=== PATIENT | male | born 1950 ===

== ENCOUNTER 2017-08-06 09:10 | Inpatient (IN) | payer OTHER ==
--- NOTE | 2017-08-06 09:36 | ED PDOC ---
Arrival/HPI - General Chief Complaint: Weakness/Neurological Deficit Time Seen by Provider: 08/06/17 09:25 Historian: Patient, Spouse - History of Present Illness Narrative History of Present Illness (Text): 08/06/17 09:30 A 66 year old male, whose past medial history includes hypertension (non compliant with meds), presents to the emergency department for waking up with left sided extremity weakness. The patient states he went to bed around 10-11 and was at his normal baseline. The patient reports when he woke up he had left sided extremity weakness. The patient denies any light-headedness, dizziness, chest pain, visions changes, or any other complaints at this time. Time/Duration: 1-3 hours Symptom Onset: Gradual Symptom Course: Improving Severity Level: Mild Activities at Onset: Rest, Light Context: Home Associated Symptoms (Text): 08/06/17 09:57 Patient and report that he went to bed last evening between 10 and 11:00. He woke up this morning sometime around 8 with left sided weakness. No headache. No dizziness. No numbness tingling or paresthesias. No speech difficulty. He went to bed feeling fine last night. No chest pain palpitations or dyspnea. History of hypertension, but he does not take his medications as prescribed. Patient is not a TPA candidate as the timeframe is too long. NIH is 2. Past Medical History - Provider Review Nursing Documentation Reviewed: Yes - Cardiac Hx Cardiac Disorders: Yes Hx Hypertension: Yes - Neurological Hx Neurological Disorder: Yes Hx Transient Ischemic Attacks (TIA): Yes - Psychiatric Hx Substance Use: No Family/Social History - Physician Review Nursing Documentation Reviewed: Yes Family/Social History: No Known Family HX Smoking Status: Never Smoked Hx Alcohol Use: No Hx Substance Use: No Allergies/Home Meds Allergies/Adverse Reactions: Allergies No Known Allergies Allergy (Verified 08/06/17 09:12) Home Medications: Home Meds Medication Instructions Recorded Confirmed No Known Home Med 08/06/17 08/06/17 Review of Systems - Physician Review All systems were reviewed & negative as marked: Yes - Review of Systems Eyes: absent: Vision Changes Respiratory: absent: SOB Cardiovascular: absent: Chest Pain, Palpitations, Syncope Gastrointestinal: absent: Abdominal Pain, Nausea, Vomiting Neurological: Focal Weakness (left sided weakness), Other (dizziness). absent: Headache, Dizziness, Speech Changes, Facial Droop, Seizure Physical Exam Vital Signs Temp Pulse Resp BP Pulse Ox 08/06/17 12:36 74 18 186/107 H 98 08/06/17 11:37 72 182/106 H 08/06/17 11:21 71 185/104 H 08/06/17 11:19 72 24 187/112 H 08/06/17 10:55 205/110 H 08/06/17 10:18 84 18 222/114 H 95 08/06/17 09:10 98.7 F 69 18 214/98 H 95 Temperature: Afebrile Blood Pressure: Hypertensive Pulse: Regular Respiratory Rate: Normal Appearance: Positive for: Well-Appearing, Non-Toxic, Comfortable Pain Distress: None Mental Status: Positive for: Alert and Oriented X 3 Finger Stick Blood Glucose: 126 - Systems Exam Head: Present: Atraumatic, Normocephalic Pupils: Present: PERRL Extroacular Muscles: Present: EOMI Conjunctiva: Present: Normal Mouth: Present: Moist Mucous Membranes Pharnyx: No: ERYTHEMA, EXUDATE, TONSILS ENLARGED Neck: Present: Normal Range of Motion Respiratory/Chest: Present: Clear to Auscultation, Good Air Exchange, Decreased Breath Sounds. No: Respiratory Distress, Accessory Muscle Use Cardiovascular: Present: Regular Rate and Rhythm, Normal S1, S2. No: Murmurs Abdomen: Present: Normal Bowel Sounds. No: Tenderness, Distention, Peritoneal Signs, Rebound, Guarding Back: Present: Normal Inspection Upper Extremity: Present: Normal Inspection. No: Cyanosis, Edema Lower Extremity: Present: Normal Inspection. No: Edema Neurological: Present: GCS=15, CN II-XII Intact, Speech Normal. No: Motor Func Grossly Intact, Normal Cerebellar Funct, Gait Normal (Left upper extremity weakness. Left upper extremity passpointing. Gait and stance not examined) Skin: Present: Warm, Dry, Normal Color. No: Rashes Psychiatric: Present: Alert, Oriented x 3, Normal Insight, Normal Concentration Medical Decision Making ED Course and Treatment: 08/06/17 09:40 Impression: A 66 year old male with left sided weakness. Differential Diagnosis included but are not limited to: Plan: -- Head CT -- Chest X-ray -- EKG -- Labs -- Urinalysis -- Reassess and disposition Progress Notes: 08/06/17 10:01 EKG shows normal sinus rhythm rate approximately [address] and T- wave changes laterally with no old available for comparison - Lab Interpretations Lab Results: 08/06/17 10:00 08/06/17 10:00 Lab Results 08/06/17 10:00: TSH 3rd Generation 1.50 08/06/17 10:00: Magnesium 2.1, Triglycerides 174 H, Cholesterol 201 H, LDL Cholesterol Direct 148 H, HDL Cholesterol 34 08/06/17 10:00: Sodium 145, Potassium 2.9 L*, Chloride 103, Carbon Dioxide 31, Anion Gap 13, BUN 21, Creatinine 1.3, Est GFR ( Amer) > 60, Est GFR (Non- Af Amer) 56, Random Glucose 134 H, Calcium 8.8, Phosphorus 2.7, Magnesium 2.1, Total Bilirubin 0.8, AST 28, ALT 38, Alkaline Phosphatase 98, Lactate Dehydrogenase 566, Total Creatine Kinase 101, Troponin I 0.02, Total Protein 7.1 , Albumin 4.0, Globulin 3.1, Albumin/Globulin Ratio 1.3 08/06/17 10:00: PT 11.7, INR 1.06, APTT 29.3 08/06/17 10:00: WBC 8.9, RBC 4.73, Hgb 14.6, Hct 42.1, MCV 89.0, MCH 30.9, MCHC 34.7, RDW 14.6 H, Plt Count 221, MPV 11.7 H, Gran % 75.2 H, Lymph % (Auto) 16.3 L, Piatt % (Auto) 6.0, Eos % (Auto) 2.2, Baso % (Auto) 0.3, Gran # 6.68 H, Lymph # 1.5, Piatt # 0.5, Eos # 0.2, Baso # 0.03 08/06/17 09:50: Urine Color Yellow, Urine Appearance Sl cloudy, Urine pH 7.5, Ur Specific [place] 1.025, Urine Protein 100 H, Urine Glucose (UA) Negative, Urine Ketones Negative, Urine Blood Small H, Urine Nitrate Negative, Urine Bilirubin Negative, Urine Urobilinogen 0.2, Ur Leukocyte Esterase Negative, Urine RBC 2 - 5, Urine WBC Negative - RAD Interpretation Radiology Orders: 08/06/17 09:29 HEAD W/O CONTRAST [CT] Stat 08/06/17 09:31 CHEST PORTABLE [RAD] Stat CT scan of the head as read by the radiologist shows no acute findings, old CVA Rn New Grad: Radiologist - Medication Orders Current Medication Orders: Aspirin (Aspirin Chewable) 81 mg PO DAILY SUKHI Potassium Chloride (Potassium Chloride 20 Meq/100 Ml) 20 meq in 100 mls @ 50 mls/hr IVPB Q2H SUKHI Stop: 08/06/17 16:29 Last Admin: 08/06/17 12:52 Dose: 50 mls/hr eMAR Start Stop Document 08/06/17 12:52 RG (Rec: 08/06/17 12:54 [id number] Intravenous Solution Start Date 08/06/17 Start Time 12:54 Pantoprazole Sodium (Protonix Ec Tab) 40 mg PO 0600 SUKHI Discontinued Medications Aspirin (Aspirin Chewable) 324 mg PO ONCE ONE Stop: 08/06/17 10:27 Last Admin: 08/06/17 10:45 Dose: 324 mg Enalaprilat (Vasotec Iv) 5 mg IVP STAT STA Stop: 08/06/17 10:27 Last Admin: 08/06/17 10:55 Dose: 5 mg MAR Blood Pressure Document 08/06/17 10:55 RG (Rec: 08/06/17 10:55 [id number]) Blood Pressure Blood Pressure (100/60-150/90) 205/110 IVP Administration Document 08/06/17 10:55 RG (Rec: 08/06/17 10:55 [id number]) Charges for Administration # of IVP Administrations 1 Potassium Chloride (Potassium Chloride Oral Soln) 40 meq PO STAT STA Stop: 08/06/17 10:58 Last Admin: 08/06/17 11:10 Dose: 40 meq NIHSS Scale ([place]) Time Performed: 10:20 - How Severe is the Stoke Baseline Level of Consciousness: 0=Alert LOC to Questions: 0=Both comments correct LOC to commands: 0=Obeys both correctly Best Gaze: 0=Normal Visual: 0=No visual loss Facial: 0=Normal Motor Arm - Left: 1=Drift noted before 10 sec Motor Arm - Right: 0=No drift Motor Leg - Left: 0=No drift Motor Leg - Right: 0=No drift Limb Ataxia: 1=Present Upper or Lower Sensory: 0=Normal Best Language: 0=No aphasia Dysarthia: 0=Normal articulation Extinction & Inattention (Neglect): 0=Normal, no object Score: 2 Risk Level: Minor Stroke Risk - Scribe Statement The provider has reviewed the documentation as recorded by the Pete Shah Provider Scribe Attestation: All medical record entries made by the Scribe were at my direction and personally dictated by me. I have reviewed the chart and agree that the record accurately reflects my personal performance of the history, physical exam, medical decision making, and the department course for this patient. I have also personally directed, reviewed, and agree with the discharge instructions and disposition. Disposition/Present on Arrival - Present on Arrival Any Indicators Present on Arrival: No History of DVT/PE: No History of Uncontrolled Diabetes: No Urinary Catheter: No History of Decub. Ulcer: No History Surgical Site Infection Following: None - Disposition Have Diagnosis and Disposition been Completed?: Yes Diagnosis: CVA (cerebral vascular accident), Hypertension Disposition: HOSPITALIZED Disposition Time: 11:32 Patient Plan: Admission Patient Problems: Current Active Problems Problem Status Onset CVA (cerebral vascular accident) Acute Hypertension Acute Condition: SERIOUS
[2017-08-06 10:08] LABS: BASO # 0.03 K/mm3 (0.0-2.0); BASO % 0.3 % (0.0-3.0); EOS # 0.2 (0.0-0.7); EOS % 2.2 % (1.5-5.0); GRAN # 6.68 (1.4-6.5); GRAN % 75.2 % (50.0-68.0); HEMATOCRIT 42.1 % (42.0-52.0); LYMPH # 1.5 (1.2-3.4); LYMPH % 16.3 % (22.0-35.0); MEAN CORPUSCULAR HEMOGLOBIN 30.9 pg (25.0-35.0); MEAN CORPUSCULAR HGB CONC 34.7 g/dl (31.0-37.0); MEAN PLATELET VOLUME 11.7 fl (7.0-11.0); MONO # 0.5 (0.1-0.6); RED CELL DISTRIBUTION WIDTH 14.6 % (11.5-14.5); WHITE BLOOD COUNT 8.9 10^3/ul (4.5-11.0)
[2017-08-06 10:23] LABS: PH,URINE 7.5 (4.7-8.0); URINE BILIRUBIN NEGATIVE (NEGATIVE); URINE BLOOD SMALL (NEGATIVE); URINE GLUCOSE (UA) NEGATIVE (NEGATIVE); URINE KETONE NEGATIVE (NEGATIVE); URINE LEUKOCYTE ESTERASE NEGATIVE Leu/uL (NEGATIVE); URINE PROTEIN 100 mg/dL (<30 mg/dL); URINE UROBILINOGEN 0.2 E.U./dL (<1 E.U./dL)
--- NOTE | 2017-08-06 10:24 | CT ---
PROCEDURE: CT HEAD WITHOUT CONTRAST. HISTORY: LUE weakness COMPARISON: None available. TECHNIQUE: Axial computed tomography images were obtained through the head/brain without intravenous contrast. Radiation dose: Total exam DLP = 726 mGy-cm. This CT exam was performed using one or more of the following dose reduction techniques: Automated exposure control, adjustment of the mA and/or kV according to patient size, and/or use of iterative reconstruction technique. FINDINGS: HEMORRHAGE: No intracranial hemorrhage. BRAIN: No mass effect or edema. 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 Severe chronic microvascular changes are seen in the deep white matter. There is a calcification in the left parietal lobe. There are no acute intracranial findings. VENTRICLES: Unremarkable. No hydrocephalus. CALVARIUM: Unremarkable. PARANASAL SINUSES: Unremarkable as visualized. No significant inflammatory changes. MASTOID AIR CELLS: Unremarkable as visualized. No inflammatory changes. OTHER FINDINGS: None. IMPRESSION: There is a chronic infarct in the right thalamus. Severe chronic microvascular changes are seen in the deep white matter. There is a calcification in the left parietal lobe. There are no acute intracranial findings.
[2017-08-06 10:25] LABS: URINE APPEARANCE SL CLOUDY (CLEAR); URINE COLOR YELLOW (YELLOW)
[2017-08-06 10:26] LABS: INR 1.06 (0.93-1.08); PARTIAL THROMBOPLASTIN TIME 29.3 Seconds (25.1-36.5)
[2017-08-06] MEDS ORDERED: EnalaprilAT 1.25 mg/ml Inj IVP STA (10:26)
[2017-08-06 10:31] LABS: TROPONIN I 0.02 ng/mL
[2017-08-06 10:41] LABS: URINE WBC NEGATIVE /hpf (0-6)
[2017-08-06 10:54] LABS: ALB/GLOB RATIO 1.3 (1.1-1.8); ALKALINE PHOSPHATASE 98 U/L (38-126); ALT/SGPT 38 U/L (7-56); AST/SGOT 28 U/L (17-59); BILIRUBIN,TOTAL 0.8 mg/dL (0.2-1.3); BLOOD UREA NITROGEN 21 mg/dL (7-21); CALCIUM 8.8 mg/dL (8.4-10.5); CARBON DIOXIDE 31 mmol/L (21-33); CHLORIDE 103 mmol/L (98-107); GFR AFRICAN-AMERICAN > 60; GLUCOSE,RANDOM 134 mg/dL (70-110); MAGNESIUM 2.1 mg/dL (1.7-2.2); PHOSPHOROUS 2.7 mg/dL (2.5-4.5); POTASSIUM 2.9 mmol/L (3.6-5.0); SODIUM 145 mmol/L (132-148); TOTAL PROTEIN 7.1 g/dL (5.8-8.3)
[2017-08-06] MEDS ORDERED: Potassium Chloride 40 mEq/30 ml LIQ UD PO STA (10:57)
--- NOTE | 2017-08-06 11:06 | RAD ---
HISTORY: weakness COMPARISON: No prior. FINDINGS: LUNGS: No active pulmonary disease. PLEURA: No significant pleural effusion identified, no pneumothorax apparent. CARDIOVASCULAR: Normal. OSSEOUS STRUCTURES: No significant abnormalities. VISUALIZED UPPER ABDOMEN: Normal. OTHER FINDINGS: None. IMPRESSION: No active disease.
--- NOTE | 2017-08-06 12:48 | CP.PCM.HP ---
History of Present Illness - History of Present Illness History of Present Illness: CC: L sided weakness 66 M with past medial history includes CVA (7 years ago), HTN (medication non compliance), kidney stones, presents to the ED with L sided weakness. Pt states that last night he was feeling okay than when he woke up this morning he felt left sided weakness in both his upper and lower extremity. He also complains of L sided tinglness inside his mouth. He denies having any symptoms prior sleeping. He denies any loss of consciousness, urinary or bowel incontinence, or tongue biting. He denies any dizziness, visual changes, chest pain, sob, abd pain, n/v/d. 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 Present on Admission - Present on Admission Any Indicators Present on Admission: No Review of Systems - Review of Systems All systems: reviewed and no additional remarkable complaints except Past Patient History - Past Social History Smoking Status: Never Smoked - CARDIAC Hx Cardiac Disorders: Yes Hx Hypertension: Yes - NEUROLOGICAL Hx Neurological Disorder: Yes Hx Transient Ischemic Attacks (TIA): Yes - PSYCHIATRIC Hx Substance Use: No - SURGICAL HISTORY Hx Surgeries: No Meds Allergies/Adverse Reactions: Allergies Allergy/AdvReac Type Severity Reaction Status Date / Time No Known Allergies Allergy Verified 08/06/17 09:12 Physical Exam - Constitutional Appears: No Acute Distress - Head Exam Head Exam: ATRAUMATIC, NORMOCEPHALIC - Eye Exam Eye Exam: EOMI, PERRL - ENT Exam ENT Exam: Mucous Membranes Moist - Respiratory Exam Respiratory Exam: Clear to Auscultation Bilateral. absent: Rales, Wheezes - Cardiovascular Exam Cardiovascular Exam: REGULAR RHYTHM, RRR, +S1, +S2 - GI/Abdominal Exam GI & Abdominal Exam: Normal Bowel Sounds, Soft. absent: Tenderness - Back Exam Back exam: absent: vertebral tenderness - Neurological Exam Neurological exam: Alert, CN II-XII Intact, Reflexes Normal Additional comments: Motor strength and sensory both intact - with slight L sided weakness. - Psychiatric Exam Psychiatric exam: Normal Affect, Normal Mood - Skin Skin Exam: Dry, Intact, Warm Results - Vital Signs Recent Vital Signs: Last Vital Signs Temp 98.7 F 08/06/17 09:10 Pulse 74 08/06/17 12:36 Resp 18 08/06/17 12:36 BP 186/107 H 08/06/17 12:36 Pulse Ox 98 08/06/17 12:36 - Labs Result Diagrams: 08/06/17 10:00 08/06/17 10:00 Labs: Laboratory Results - last 24 hr 08/06/17 08/06/17 08/06/17 09:50 10:00 10:00 WBC 8.9 RBC 4.73 Hgb 14.6 Hct 42.1 MCV 89.0 MCH 30.9 MCHC 34.7 RDW 14.6 H Plt Count 221 MPV 11.7 H Gran % 75.2 H Lymph % (Auto) 16.3 L [place]ett[place] % (Auto) 6.0 Eos % (Auto) 2.2 Baso % (Auto) 0.3 Gran # 6.68 H Lymph # 1.5 Pettis # 0.5 Eos # 0.2 Baso # 0.03 PT 11.7 INR 1.06 APTT 29.3 Sodium Potassium Chloride Carbon Dioxide Anion Gap BUN Creatinine Est GFR ( Amer) Est GFR (Non-Af Amer) Random Glucose Calcium Phosphorus Magnesium Total Bilirubin AST ALT Alkaline Phosphatase Lactate Dehydrogenase Total Creatine Kinase Troponin I Total Protein Albumin Globulin Albumin/Globulin Ratio Urine Color Yellow Urine Appearance Sl cloudy Urine pH 7.5 Ur Specific [place] 1.025 Urine Protein 100 H Urine Glucose (UA) Negative Urine Ketones Negative Urine Blood Small H Urine Nitrate Negative Urine Bilirubin Negative Urine Urobilinogen 0.2 Ur Leukocyte Esterase Negative Urine RBC 2 - 5 Urine WBC Negative 08/06/17 10:00 WBC RBC Hgb Hct MCV MCH MCHC RDW Plt Count MPV Gran % Lymph % (Auto) [place] % (Auto) Eos % (Auto) Baso % (Auto) Gran # Lymph # Pettis # Eos # Baso # PT INR APTT Sodium 145 Potassium 2.9 L* Chloride 103 Carbon Dioxide 31 Anion Gap 13 BUN 21 Creatinine 1.3 Est GFR ( Amer) > 60 Est GFR (Non-Af Amer) 56 Random Glucose 134 H Calcium 8.8 Phosphorus 2.7 Magnesium 2.1 Total Bilirubin 0.8 AST 28 ALT 38 Alkaline Phosphatase 98 Lactate Dehydrogenase 566 Total Creatine Kinase 101 Troponin I 0.02 Total Protein 7.1 Albumin 4.0 Globulin 3.1 Albumin/Globulin Ratio 1.3 Urine Color Urine Appearance Urine pH Ur Specific [place] Urine Protein Urine Glucose (UA) Urine Ketones Urine Blood Urine Nitrate Urine Bilirubin Urine Urobilinogen Ur Leukocyte Esterase Urine RBC Urine WBC Assessment & Plan - Assessment and Plan (Free Text) Assessment: 66 M with past medial history includes CVA (7 years ago), HTN (medication non compliance) , kidney stones, presents to the ED with L sided weakness. 1. L sided weakness r/o CVA - NPO - CTH in the ED was negative for any acute intracranial abnormality - Neuro consulted for recs - Cardio consulted for recs - F/u echo and carotid US - F/u speech and swallow eval and treat - F/u TSH, Hba1c, Lipid - Cont daily Aspirin - AM labs 2. HTN - Permissive HTN and will treat once >200/100 - Enalapril 5mg x 1 in the ED - Cont to monitor 3. Hypokalemia - K of 2.9 - KCL 40 PO given in the ED - KCl 20me x 2 ordered - Cont to monitor - F/u Mg 4. GI/DVT - protonix and SCDs Case and plan was reviewed and discussed in detail with Dr Astudillo.
[2017-08-06 13:29] LABS: MAGNESIUM 2.1 mg/dL (1.7-2.2)
--- NOTE | 2017-08-06 15:28 | US ---
PROCEDURE: Bilateral carotid artery duplex ultrasound HISTORY: Carotid stenosis CVA PHYSICIAN(S): Pravin Weeks MD. TECHNIQUE: Duplex sonography and color-flow Doppler were used to evaluate the carotid bifurcations and limited segments of the vertebral arteries bilaterally. FINDINGS: The exam is somewhat limited by body habitus. There is mild smooth heterogeneous plaque noted at the carotid bifurcations bilaterally. The peak systolic velocity in the proximal right internal carotid artery is 75 cm/sec. This corresponds to a 20 to 39% proximal right ICA stenosis. Normal systolic velocities are noted in the proximal right external carotid artery. There is antegrade flow in the right vertebral artery. The peak systolic velocity in the proximal left internal carotid artery is 68 cm/sec. This corresponds to a 20 to 39% proximal left ICA stenosis. Normal systolic velocities are noted in the proximal left external carotid artery. There is antegrade flow in the left vertebral artery. IMPRESSION: 1. Bilateral 20-39% proximal ICA stenoses. 2. Antegrade flow in both vertebral arteries.
[2017-08-06] MEDS ORDERED: Labetalol 5 mg/ml Inj 20ML IV ONE (16:43)
--- NOTE | 2017-08-06 16:52 | CARD ---
APPROVED REPORT EXAM: Two-dimensional and M-mode echocardiogram with Doppler and color Doppler. INDICATION R/O CVA 2D DIMENSIONS Left Atrium (2D)5.1 (1.6-4.0cm)IVSd1.9 (0.7-1.1cm) LVDd4.3 (3.9-5.9cm)PWd1.9 (0.7-1.1cm) LVDs3.0 (2.5-4.0cm)FS (%) 30.8 % LVEF (%)58.7 (>50%) M-Mode DIMENSIONS Aortic Root3.20 (2.2-3.7cm)Aortic Cusp Exc.1.50 (1.5-2.0cm) Aortic Valve AoV Peak Uwrcvmax538.0cm/[place] Peak GR.11mmHg Mitral Valve MV E Krfftjvy270.0cm/sMV A Jjpcdapq69.8cm/sE/A ratio1.8 TDI Lateral E' Peak V6.73cm/sMedial E' Peak V5.17cm/sE/Lateral E'16.2 E/Medial E'21.1 Pulmonary Valve PV Peak Jeymefqe55.1cm/sPV Peak Grad.3mmHg Tricuspid Valve TR Peak [id number]/sRAP [id number] Peak Gr.21mmHg [id number] LEFT VENTRICLE The left ventricle is normal size. There is moderate to severe concentric left ventricular hypertrophy. The left ventricular function is normal. The left ventricular ejection fraction is within the normal range. There is normal LV segmental wall motion. Transmitral Doppler flow pattern is Grade II-pseudonormal filling dynamics. RIGHT VENTRICLE The right ventricle is normal size. There is normal right ventricular wall thickness. The right ventricular systolic function is normal. ATRIA The left atrium is moderately dilated. The right atrium is mildly dilated. AORTIC VALVE The aortic valve is mildly sclerotic. No aortic regurgitation is present. There is no aortic valvular stenosis. MITRAL VALVE The mitral valve is mildly thickened. There is no mitral valve regurgitation noted. There is no mitral valve stenosis. TRICUSPID VALVE The tricuspid valve is normal in structure. There is no tricuspid valve regurgitation noted. PULMONIC VALVE The pulmonary valve is normal in structure. There is no pulmonic valvular regurgitation. GREAT VESSELS The aortic root is normal in size. The IVC is normal in size and collapses >50% with inspiration. PERICARDIAL EFFUSION There is no pericardial effusion. <Conclusion> The left ventricle is normal size. There is moderate to severe concentric left ventricular hypertrophy. The left ventricular function is normal. The left ventricular ejection fraction is within the normal range. There is normal LV segmental wall motion. Transmitral Doppler flow pattern is Grade II-pseudonormal filling dynamics.
--- NOTE | 2017-08-06 17:24 | CARD ---
APPROVED REPORT EKG Measurement Heart [id number] <Conclusion> Normal sinus rhythm Possible Left atrial enlargement T wave abnormality, consider inferolateral ischemia Prolonged QT Abnormal ECG
--- NOTE | 2017-08-06 17:34 | CP.PCM.CON ---
<Yaneth Easton - Last Filed: 08/06/17 17:36> History of Present Illness - History of Present Illness History of Present Illness: PGY-2 Neurology consult note for Sin Chin's service 66 male with past medial history includes CVA (7 years ago), HTN, kidney stones , presents to the ED with Left sided weakness. Patient states that last night he was feeling well but when he woke up this morning he felt left sided weakness in both his upper and lower extremity. He also reports tingling and numbness in the left side of his mouth. He denies having any symptoms prior sleeping. He does report medication non compliance with his blood pressure meds. He denies any loss of consciousness, dizziness, headache, fever, chills, urinary or bowel incontinence, or tongue biting. He denies any dizziness, visual changes, chest pain, sob, abd pain, n&v, diarrhea. PMH: CVA (7 years ago), HTN, kidney stones, PSH: surgery for kidney stones Allergy: NKDA Family History: grandfather had CVA Social History: Denies any smoking, drinking or drugs. Review of Systems - Review of Systems All systems: reviewed and no additional remarkable complaints except (as stated in HPI) Past Patient History - Past Social History Smoking Status: Never Smoked - CARDIAC Hx Cardiac Disorders: Yes Hx Hypertension: Yes - NEUROLOGICAL Hx Neurological Disorder: Yes Hx Transient Ischemic Attacks (TIA): Yes - PSYCHIATRIC Hx Substance Use: No - SURGICAL HISTORY Hx Surgeries: No Meds Allergies/Adverse Reactions: Allergies Allergy/AdvReac Type Severity Reaction Status Date / Time No Known Allergies Allergy Verified 08/06/17 09:12 - Medications Medications: Current Medications Aspirin (Aspirin Chewable) 81 mg PO DAILY [facility] Pantoprazole Sodium (Protonix Ec Tab) 40 mg PO 0600 [facility] Physical Exam - Constitutional Appears: Well, No Acute Distress - Head Exam Head Exam: ATRAUMATIC, NORMAL INSPECTION, NORMOCEPHALIC - Eye Exam Eye Exam: EOMI, Normal appearance, PERRL - ENT Exam ENT Exam: Mucous Membranes Moist - Respiratory Exam Respiratory Exam: Clear to Auscultation Bilateral, NORMAL BREATHING PATTERN. absent: Rhonchi, Wheezes, Respiratory Distress - Cardiovascular Exam Cardiovascular Exam: REGULAR RHYTHM, +S1, +S2. absent: Tachycardia, Systolic Murmur - GI/Abdominal Exam GI & Abdominal Exam: Normal Bowel Sounds, Soft. absent: Tenderness - Extremities Exam Extremities exam: Positive for: normal inspection. Negative for: pedal edema, tenderness - Neurological Exam Neurological exam: Alert, CN II-XII Intact, Oriented x3 - Expanded Neurological Exam Expanded Patient oriented to: person, place, time Speech: Fluid Speech Cranial nerves: EOM's Intact: Normal, Tongue Deviation: Normal Cerebellar Function: Finger to Nose: Normal Upper motor neuron: Babinski Sign: Normal, Pronator Drift: Abnormal Left Neuro motor strength exam: Left Upper Extremity: 5, Right Upper Extremity: 5, Left Lower Extremity: 5, Right Lower Extremity: 5 - Skin Skin Exam: Dry, Intact, Normal Color, Warm Results - Vital Signs Recent Vital Signs: Last Vital Signs Temp 98.7 F 08/06/17 09:10 Pulse 75 08/06/17 16:57 Resp 18 08/06/17 12:36 BP 205/113 H 08/06/17 16:57 Pulse Ox 98 08/06/17 12:36 - Labs Result Diagrams: 08/06/17 10:00 08/06/17 10:00 Assessment & Plan - Assessment and Plan (Free Text) Assessment: 66 male with past medial history includes CVA (7 years ago), HTN, kidney stones , presents to the ED with Left sided weakness possibly due to CVA secondary HTN urgency. 1. left sided weakness 2. HTN- uncontrolled - CT head showed chronic infarct of right thalamus, severe chronic microvascular changes - MRI ordered stat - echo showed moderate to severe left ventricular hypertroghy, EF 58% - carotid doppler bilateral 20-39% proximal ICA stenoses - Maintain Systolic Blood Pressure less then 200, and diastolic less then 100 - echo completed, awaiting official read case reviewed and discussed with attending <Jose Martin Chin - Last Filed: 08/06/17 18:07> Meds - Medications Medications: Current Medications Aspirin (Aspirin Chewable) 81 mg PO DAILY [facility] Pantoprazole Sodium (Protonix Ec Tab) 40 mg PO 0600 [facility] Results - Vital Signs Recent Vital Signs: Last Vital Signs Temp 98.7 F 08/06/17 09:10 Pulse 75 08/06/17 16:57 Resp 18 08/06/17 12:36 BP 205/113 H 08/06/17 16:57 Pulse Ox 98 08/06/17 12:36 - Labs Result Diagrams: 08/06/17 10:00 08/06/17 10:00 Attending/Attestation - Attestation I have personally seen and examined this patient.: Yes I have fully participated in the care of the patient.: Yes I have reviewed all pertinent clinical information: Yes
--- NOTE | 2017-08-06 19:15 | MRI ---
EXAM: MR Head Without Intravenous Contrast EXAM DATE/TIME: 08/06/2017 3:30 PM CLINICAL HISTORY: The patient age is 66 years old and is male; Signs and symptoms; Other: CVA Facility exam id and description: Mri br s brain without contrast TECHNIQUE: Magnetic resonance images of the head/brain without intravenous contrast in multiple planes. COMPARISON: CT - HEAD W/O CONTRAST 2017-08-06 09:57 FINDINGS: Brain: There is scattered foci of increased signal intensity on the diffusion sequence within the cerebral white matter bilaterally. These findings are heterogeneous in signal intensity on the ADC trace sequence. This is suggestive of subacute ischemic change, although T2 shine through artifact can contribute to these findings. Due to distribution of foci, embolic disease is considered. There is moderate to extensive additional high FLAIR signal intensity within the cerebral white matter. There is no mass effect or restricted diffusion associated with these foci. In a patient this age, this likely represents chronic small vessel ischemic disease. There is a small nonspecific focus of T1 hypointensity within the genu/anterior body of the corpus callosum. This is suggestive of chronic ischemic change or demyelination. Additional foci of FLAIR hyperintensity are seen within the bilateral basal ganglia and thalami , as well as the gerald. These findings are consistent with chronic lacunar infarcts/chronic small vessel ischemic disease. Ventricles: There is mild prominence of the ventricles and sylvian fissures, compatible with atrophy. Bones/joints: No acute abnormality. Sinuses: Unremarkable as visualized. No acute sinusitis. Mastoid air cells: No mastoid effusion. Orbits: No acute abnormality, as visualized. IMPRESSION: 1. There is scattered foci of increased signal intensity on the diffusion sequence within the cerebral white matter bilaterally. These findings are suggestive of subacute ischemic change, although T2 shine through artifact can contribute to these findings. Due to distribution of foci, embolic disease is considered. 2. There is moderate to extensive additional high FLAIR signal intensity within the cerebral white matter. In a patient this age, this likely represents chronic small vessel ischemic disease. 3. Additional chronic ischemic changes are noted above. 4. Mild atrophy. 5. There is a small nonspecific focus of T1 hypointensity within the genu/anterior body of the corpus callosum. This is suggestive of chronic ischemic change or demyelination. Nonemergent post contrast sequences are recommended to exclude additional pathology.
[2017-08-06 20:13] VITALS: BMI 32.3
[2017-08-06] MEDS ORDERED: Metoprolol 1 mg/ml Inj IVP ONE (21:07)
[2017-08-07] MEDS: Pantoprazole 40 mg EC Tab PO SCH (05:20)
[2017-08-07 07:01] LABS: BASO # 0.02 K/mm3 (0.0-2.0); BASO % 0.2 % (0.0-3.0); EOS # 0.1 (0.0-0.7); GRAN # 6.46 (1.4-6.5); GRAN % 64.2 % (50.0-68.0); HEMATOCRIT 41.7 % (42.0-52.0); LYMPH # 2.5 (1.2-3.4); LYMPH % 24.8 % (22.0-35.0); MEAN CELL VOLUME 89.9 fl (80.0-105.0); MEAN CORPUSCULAR HEMOGLOBIN 30.4 pg (25.0-35.0); MEAN CORPUSCULAR HGB CONC 33.8 g/dl (31.0-37.0); MONO % 9.8 % (1.0-6.0); RED CELL DISTRIBUTION WIDTH 15.2 % (11.5-14.5); WHITE BLOOD COUNT 10.1 10^3/ul (4.5-11.0)
[2017-08-07 07:08] LABS: ALB/GLOB RATIO 1.2 (1.1-1.8); ALKALINE PHOSPHATASE 86 U/L (38-126); ALT/SGPT 41 U/L (7-56); AST/SGOT 35 U/L (17-59); BILIRUBIN,TOTAL 0.9 mg/dL (0.2-1.3); BLOOD UREA NITROGEN 19 mg/dL (7-21); CALCIUM 8.9 mg/dL (8.4-10.5); CARBON DIOXIDE 27 mmol/L (21-33); CHLORIDE 107 mmol/L (98-107); GFR AFRICAN-AMERICAN > 60; GLUCOSE,RANDOM 105 mg/dL (70-110); MAGNESIUM 2.2 mg/dL (1.7-2.2); POTASSIUM 3.2 mmol/L (3.6-5.0); SODIUM 145 mmol/L (132-148); TOTAL PROTEIN 6.8 g/dL (5.8-8.3)
[2017-08-07] MEDS ORDERED: Potassium Chloride 40 mEq/30 ml LIQ UD PO STA (08:53)
[2017-08-07] MEDS ORDERED: Labetalol 5 mg/ml Inj 20ML IV ONE (08:57)
[2017-08-07] MEDS ORDERED: Gadodiamide 287 MG/ML VIAL (20ML) IV ONE (09:41)
[2017-08-07] MEDS ORDERED: Labetalol 5 mg/ml Inj 20ML IVP ONE (09:50)
--- NOTE | 2017-08-07 11:21 | MRI ---
PROCEDURE: Magnetic Resonance Angiography Brain HISTORY: eval, MRI brain suggestive of subacute ischemia COMPARISON: None available. TECHNIQUE: 3D time of flight MR angiography of the intracranial arteries was performed. Rotating maximum intensity projection images were generated. FINDINGS: INTERNAL CAROTID ARTERIES: Unremarkable. The skull base, petrous, cavernous and supraclinoid segments are bilaterally widely patient. ANTERIOR CEREBRAL ARTERIES: Unremarkable. A1 and A2 segments are widely patent. Smaller distal branches unremarkable, as visualized. MIDDLE CEREBRAL ARTERIES: Unremarkable. M1 and M2 segments are widely patent. Perisylvian branches grossly symmetric. POSTERIOR CIRCULATION: Basilar Artery: Unremarkable. Distal Vertebral Arteries: Unremarkable. Posterior Cerebral Arteries: Unremarkable. Posterior Inferior Cerebellar Arteries: Unremarkable. ANEURYSM/ VASCULAR MALFORMATIONS: None. OTHER FINDINGS: None. IMPRESSION: Unremarkable MR angiography of the brain.
--- NOTE | 2017-08-07 11:23 | MRI ---
PROCEDURE: MR Angiography of the neck with and without contrast HISTORY: eval, MRI brain suggestive of subacute ischemia COMPARISON: None available. TECHNIQUE: Contrast enhanced and [id number] angiography of the neck was performed. Rotating 3D maximum intensity projection images of the cervical carotid and vertebral arteries were generated. 20 cc of Omniscan FINDINGS: RIGHT CAROTID ARTERIES: Common Carotid Artery: Normal. Carotid Bifurcation: Normal. Internal Carotid Artery:Normal. External Carotid Artery (proximal branches): Normal. LEFT CAROTID ARTERIES: Common Carotid Artery: Normal. Carotid Bifurcation: Normal. Internal Carotid Artery:Normal. External Carotid Artery (proximal branches): Normal. VERTEBRAL ARTERIES: Right Vertebral Artery: Normal. Left Vertebral Artery: Normal. OTHER FINDINGS: None. IMPRESSION: Normal MR Angiography of the neck.
--- NOTE | 2017-08-07 13:34 | CP.PCM.PN ---
Subjective - Date & Time of Evaluation Date of Evaluation: 08/07/17 Time of Evaluation: 07:30 - Subjective Subjective: PGY [address] ARREGUIN/DR. KELLY Patient seen and evaluated at bedside. No acute events reported overnight. Patient scheduled for MRA head and neck today. Patient reporting improvement in presenting symptoms. Denies blurry vision, further weakness, numbness, loss of mobility, chest pain, shob, dizziness, constipation diarrhea, vomiting, fever, chills. Patient continues to have elevated BP will continue to monitor and treat. Objective - Vital Signs/Intake and Output Vital Signs (last 24 hours): Temp Pulse Resp BP Pulse Ox 98.3 F 70 20 187/102 H 98 08/07/17 06:00 08/07/17 10:39 08/07/17 06:00 08/07/17 10:39 08/07/17 06:00 Intake and Output: 08/07/17 08/07/17 06:59 18:59 Intake Total 240 Output Total 400 Balance -160 - Medications Medications: Current Medications Aspirin (Aspirin Chewable) 81 mg PO DAILY [facility] Last Admin: 08/07/17 09:09 Dose: 81 mg Atorvastatin Calcium (Lipitor) 40 mg PO DIN [facility] Last Admin: 08/06/17 20:42 Dose: 40 mg Carvedilol (Coreg) 6.25 mg PO BID [facility] Clopidogrel Bisulfate (Plavix) 75 mg PO DAILY [facility] Last Admin: 08/07/17 09:09 Dose: 75 mg Hydralazine HCl (Apresoline) 10 mg IVP Q6 PRN PRN Reason: Other Lisinopril (Zestril) 20 mg PO DAILY [facility] Last Admin: 08/07/17 10:39 Dose: 20 mg Pantoprazole Sodium (Protonix Ec Tab) 40 mg PO 0600 [facility] Last Admin: 08/07/17 05:20 Dose: 40 mg - Labs Labs: 08/07/17 06:30 08/07/17 06:30 PT 11.7 SECONDS (9.4-12.5) 08/06/17 10:00 INR 1.06 (0.93-1.08) 08/06/17 10:00 APTT 29.3 Seconds (25.1-36.5) 08/06/17 10:00 - Constitutional Appears: No Acute Distress - Head Exam Head Exam: ATRAUMATIC, NORMAL INSPECTION, NORMOCEPHALIC - Eye Exam Eye Exam: EOMI, PERRL - ENT Exam ENT Exam: Mucous Membranes Moist - Neck Exam Neck Exam: Full ROM - Respiratory Exam Respiratory Exam: Clear to Ausculation Bilateral, NORMAL BREATHING PATTERN. absent: Rales, Rhonchi, Wheezes - Cardiovascular Exam Cardiovascular Exam: REGULAR RHYTHM, +S1, +S2. absent: Murmur - GI/Abdominal Exam GI & Abdominal Exam: Soft, Normal Bowel Sounds. absent: Distended, Firm, Rebound - Extremities Exam Extremities Exam: Normal Inspection. absent: Calf Tenderness, Pedal Edema - Back Exam Back Exam: NORMAL INSPECTION - Neurological Exam Neurological Exam: Alert, Awake, Oriented x3 Neuro motor strength exam: Left Upper Extremity: 4, Right Upper Extremity: 5, Left Lower Extremity: 4, Right Lower Extremity: 5 - Psychiatric Exam Psychiatric exam: Normal Affect, Normal Mood - Skin Skin Exam: Dry, Intact. absent: Rash Assessment and Plan - Assessment and Plan (Free Text) Assessment: 66 male with past medial history includes CVA (7 years ago), HTN, kidney stones , presents to the ED with Left sided weakness due to CVA secondary to HTN urgency, currently receiving further work up and medical management. Plan: 1. L sided weakness 2/2 suspected CVA - NPO - Brain MRI suggestive of subacute ischemic change. Embolic disease considered - CTH in the ED was negative for any acute intracranial abnormality - Neuro consulted for recs - Curbside suggesting cardio consult, possible loop recorder for Afib - Recommend anticoagulation with eliquis and ASA 81 for stroke prevention - Cardio consulted for recs - anticoagulation for stroke prevention - Cont daily Aspirin 81 - AM labs - Once BP stable plan to stop plavix, start ASA 81 and Eliquis 5 2. Hypertensive Urgency - Start Lisinopril 20mg qd, Carvedilol 6.25mg bid, Hydralazine 10mg PRN, - Maintain systolic BP <200, diastolic <100 as per neuro recs. - Cont to monitor BP 3. Hypokalemia - K of 3.2 - KCL 40 PO given in the ED - KCl 20me x 2 ordered - Cont to monitor - F/u Mg 4. Hyperlipidemia - Aspirin 81mg, Plavix 75mg, Atorvastatin 40mg 5. GI/DVT - protonix and SCDs Case and plan was reviewed and discussed in detail with Dr. Arreguin
--- NOTE | 2017-08-07 15:32 | CP.PCM.PN ---
<Yaneth Easton - Last Filed: 08/07/17 17:33> Subjective - Date & Time of Evaluation Date of Evaluation: 08/07/17 Time of Evaluation: 09:00 - Subjective Subjective: PGY-2 Neurology progress note for Dr. Chin's service Patient seen and examined at bedside. No acute distress. He states that his left side still feels weaker. He denies anyother comaplaints, including chest pain, headache, dizziness, fever, chills. Objective - Vital Signs/Intake and Output Vital Signs (last 24 hours): Temp Pulse Resp BP Pulse Ox 98.8 F 68 20 188/111 H 97 08/07/17 12:00 08/07/17 12:00 08/07/17 12:00 08/07/17 12:00 08/07/17 09:00 Intake and Output: 08/07/17 08/07/17 06:59 18:59 Intake Total 240 Output Total 400 Balance -160 - Medications Medications: Current Medications Aspirin (Aspirin Chewable) 81 mg PO DAILY [facility] Last Admin: 08/07/17 09:09 Dose: 81 mg Atorvastatin Calcium (Lipitor) 40 mg PO DIN [facility] Last Admin: 08/06/17 20:42 Dose: 40 mg Carvedilol (Coreg) 6.25 mg PO BID [facility] Clopidogrel Bisulfate (Plavix) 75 mg PO DAILY [facility] Last Admin: 08/07/17 09:09 Dose: 75 mg Hydralazine HCl (Apresoline) 10 mg IVP Q6 PRN PRN Reason: Other Lisinopril (Zestril) 20 mg PO DAILY [facility] Last Admin: 08/07/17 10:39 Dose: 20 mg Pantoprazole Sodium (Protonix Ec Tab) 40 mg PO 0600 [facility] Last Admin: 08/07/17 05:20 Dose: 40 mg - Labs Labs: 08/07/17 06:30 08/07/17 06:30 PT 11.7 SECONDS (9.4-12.5) 08/06/17 10:00 INR 1.06 (0.93-1.08) 08/06/17 10:00 APTT 29.3 Seconds (25.1-36.5) 08/06/17 10:00 - Constitutional Appears: No Acute Distress - Head Exam Head Exam: ATRAUMATIC, NORMAL INSPECTION, NORMOCEPHALIC - Eye Exam Eye Exam: EOMI, Normal appearance - ENT Exam ENT Exam: Mucous Membranes Moist - Respiratory Exam Respiratory Exam: Clear to Ausculation Bilateral, NORMAL BREATHING PATTERN. absent: Wheezes, Respiratory Distress, Stridor - Cardiovascular Exam Cardiovascular Exam: REGULAR RHYTHM - Neurological Exam Neurological Exam: Alert, Awake, CN II-XII Intact, Oriented x3 Neuro motor strength exam: Left Upper Extremity: 4, Right Upper Extremity: 5, Left Lower Extremity: 4, Right Lower Extremity: 5 - Skin Skin Exam: Dry, Intact, Normal Color, Warm Assessment and Plan - Assessment and Plan (Free Text) Assessment: 66 male with past medial history includes CVA (7 years ago), HTN, kidney stones , presents to the ED with Left sided weakness possibly due to CVA secondary HTN urgency. 1. left sided weakness 2. HTN- uncontrolled - CT head showed chronic infarct of right thalamus, severe chronic microvascular changes - MRI showed subacute ischemic changes - echo showed moderate to severe left ventricular hypertroghy, EF 58% - carotid doppler bilateral 20-39% proximal ICA stenoses - MRA of brain was unremarkable - MRA of neck was normal - Maintain Systolic Blood Pressure less then 200, and diastolic less then 100 - cardiology consult recommended will most likely need loop recorder - recommend anticoagulation such as eliquis or coumadin - continue asa 81mg - follow up with Dr. Chin outpatient case reviewed and discussed with attending <Jose Martin Chin - Last Filed: 08/07/17 19:55> Objective - Vital Signs/Intake and Output Vital Signs (last 24 hours): Temp Pulse Resp BP Pulse Ox 99 F 97 H 20 192/108 H 94 L 08/07/17 16:00 08/07/17 18:00 08/07/17 16:00 08/07/17 17:34 08/07/17 16:00 - Medications Medications: Current Medications Aspirin (Aspirin Chewable) 81 mg PO DAILY [facility] Last Admin: 08/07/17 09:09 Dose: 81 mg Atorvastatin Calcium (Lipitor) 40 mg PO DIN [facility] Last Admin: 08/07/17 17:34 Dose: 40 mg Carvedilol (Coreg) 6.25 mg PO BID [facility] Last Admin: 08/07/17 17:34 Dose: 6.25 mg Clopidogrel Bisulfate (Plavix) 75 mg PO DAILY [facility] Last Admin: 08/07/17 09:09 Dose: 75 mg Hydralazine HCl (Apresoline) 10 mg IVP Q6 PRN PRN Reason: Other Lisinopril (Zestril) 20 mg PO DAILY [facility] Last Admin: 08/07/17 10:39 Dose: 20 mg Pantoprazole Sodium (Protonix Ec Tab) 40 mg PO 0600 [facility] Last Admin: 08/07/17 05:20 Dose: 40 mg - Labs Labs: 08/07/17 06:30 08/07/17 06:30 PT 11.7 SECONDS (9.4-12.5) 08/06/17 10:00 INR 1.06 (0.93-1.08) 08/06/17 10:00 APTT 29.3 Seconds (25.1-36.5) 08/06/17 10:00 Assessment and Plan - Assessment and Plan (Free Text) Assessment: eliquis plus asa81 mg po daily for strok prevention.
--- NOTE | 2017-08-07 23:03 | CON ---
DATE: 08/07/2017 HISTORY OF PRESENT ILLNESS: The patient is a 66-year-old male who presents with new CVA with left-sided weakness. PAST MEDICAL HISTORY: Includes hypertension in which he stopped his own medications. He denies diabetes mellitus. No previous cardiac history. No shortness of breath. No angina. No previous myocardial infarction. SOCIAL HISTORY: Negative smoker. REVIEW OF SYSTEMS: 14-point review of systems reviewed in detail. No cardiac symptomatology is noted. PHYSICAL EXAMINATION: VITAL SIGNS: Blood pressure is 187/102, heart rate is in the 70s. NECK: Negative JVD. LUNGS: Without rales. HEART: With S1, S2. EXTREMITIES: Without edema. NEUROLOGIC: There is persistent left-sided weakness. LABORATORY DATA: EKG shows normal sinus rhythm with diffuse ST-T changes. Echocardiogram reveals good LV function with a dilated left atrium. BUN and creatinine are unremarkable. Cholesterol is 201 with a triglyceride of 174. Hemoglobin is 14.1. IMPRESSION: 1. New cerebrovascular accident. 2. High probability for embolic cause of his cerebrovascular accident. 3. Accelerated hypertension. 4. Abnormal EKG. 5. High probability for coronary artery disease. PLAN: Given these findings, the patient will need anticoagulation. I have left a message with Neuro about starting anticoagulation once they feel it is safe given his recent CVA. Pravin Mckeon MD
[2017-08-08] MEDS: Pantoprazole 40 mg EC Tab PO SCH (06:15)
[2017-08-08 07:41] LABS: BASO # 0.03 K/mm3 (0.0-2.0); BASO % 0.2 % (0.0-3.0); EOS # 0.2 (0.0-0.7); EOS % 1.6 % (1.5-5.0); GRAN # 9.29 (1.4-6.5); HEMATOCRIT 44.1 % (42.0-52.0); LYMPH % 16.1 % (22.0-35.0); MEAN CELL VOLUME 89.1 fl (80.0-105.0); MEAN CORPUSCULAR HEMOGLOBIN 30.5 pg (25.0-35.0); MEAN CORPUSCULAR HGB CONC 34.2 g/dl (31.0-37.0); MEAN PLATELET VOLUME 10.8 fl (7.0-11.0); MONO # 0.8 (0.1-0.6); MONO % 6.1 % (1.0-6.0); RED CELL DISTRIBUTION WIDTH 14.9 % (11.5-14.5); WHITE BLOOD COUNT 12.2 10^3/ul (4.5-11.0)
[2017-08-08 08:00] LABS: ALB/GLOB RATIO 1.2 (1.1-1.8); ALKALINE PHOSPHATASE 93 U/L (38-126); ALT/SGPT 37 U/L (7-56); AST/SGOT 33 U/L (17-59); BLOOD UREA NITROGEN 19 mg/dL (7-21); CALCIUM 9.2 mg/dL (8.4-10.5); CARBON DIOXIDE 24 mmol/L (21-33); CHLORIDE 106 mmol/L (98-107); GFR AFRICAN-AMERICAN > 60; GLUCOSE,RANDOM 110 mg/dL (70-110); POTASSIUM 3.6 mmol/L (3.6-5.0); SODIUM 141 mmol/L (132-148); TOTAL PROTEIN 7.3 g/dL (5.8-8.3)
--- NOTE | 2017-08-08 09:54 | CP.PCM.PN ---
<Yaneth Easton - Last Filed: 08/08/17 12:24> Subjective - Date & Time of Evaluation Date of Evaluation: 08/08/17 Time of Evaluation: 09:00 - Subjective Subjective: PGY-2 Neurology progress note for Dr. Chin's service Patient seen and examined at bedside. No acute distress. He continues to have left sided weakness. He denies any other complaints, including chest pain, headache, dizziness, fever, chills. Objective - Vital Signs/Intake and Output Vital Signs (last 24 hours): Temp Pulse Resp BP Pulse Ox 98.2 F 76 20 199/101 H 95 08/08/17 06:00 08/08/17 09:19 08/08/17 06:00 08/08/17 09:19 08/08/17 06:00 Intake and Output: 08/08/17 08/08/17 06:59 18:59 Intake Total 540 120 Output Total 400 800 Balance 140 -680 - Medications Medications: Current Medications Aspirin (Aspirin Chewable) 81 mg PO DAILY [facility] Last Admin: 08/08/17 09:19 Dose: 81 mg Atorvastatin Calcium (Lipitor) 40 mg PO DIN [facility] Last Admin: 08/07/17 17:34 Dose: 40 mg Carvedilol (Coreg) 6.25 mg PO BID [facility] Last Admin: 08/08/17 09:18 Dose: 6.25 mg Clopidogrel Bisulfate (Plavix) 75 mg PO DAILY [facility] Last Admin: 08/08/17 09:18 Dose: 75 mg Hydralazine HCl (Apresoline) 10 mg IVP Q6 PRN PRN Reason: Other Last Admin: 08/08/17 01:05 Dose: 10 mg Lisinopril (Zestril) 40 mg PO DAILY [facility] Last Admin: 08/08/17 09:19 Dose: 40 mg Pantoprazole Sodium (Protonix Ec Tab) 40 mg PO 0600 [facility] Last Admin: 08/08/17 06:15 Dose: 40 mg - Labs Labs: 08/08/17 06:40 08/08/17 06:40 PT 11.7 SECONDS (9.4-12.5) 08/06/17 10:00 INR 1.06 (0.93-1.08) 08/06/17 10:00 APTT 29.3 Seconds (25.1-36.5) 08/06/17 10:00 - Constitutional Appears: Well, No Acute Distress - Head Exam Head Exam: ATRAUMATIC, NORMAL INSPECTION, NORMOCEPHALIC - Eye Exam Eye Exam: EOMI, Normal appearance - ENT Exam ENT Exam: Mucous Membranes Moist - Respiratory Exam Respiratory Exam: Clear to Ausculation Bilateral, NORMAL BREATHING PATTERN. absent: Rhonchi, Wheezes, Respiratory Distress - Cardiovascular Exam Cardiovascular Exam: REGULAR RHYTHM - GI/Abdominal Exam GI & Abdominal Exam: Soft, Normal Bowel Sounds. absent: Distended, Firm, Guarding, Tenderness - Extremities Exam Extremities Exam: Normal Inspection. absent: Pedal Edema, Tenderness - Neurological Exam Neurological Exam: Alert, Awake, CN II-XII Intact, Oriented x3 Neuro motor strength exam: Left Upper Extremity: 4, Right Upper Extremity: 5, Left Lower Extremity: 4, Right Lower Extremity: 5 - Skin Skin Exam: Dry, Intact, Normal Color, Warm Assessment and Plan - Assessment and Plan (Free Text) Assessment: 66 male with past medial history includes CVA (7 years ago), HTN, kidney stones , presents to the ED with Left sided weakness possibly due to CVA secondary HTN urgency. 1. left sided weakness 2. HTN- uncontrolled - CT head showed chronic infarct of right thalamus, severe chronic microvascular changes - MRI showed subacute ischemic changes - echo showed moderate to severe left ventricular hypertroghy, EF 58% - carotid doppler bilateral 20-39% proximal ICA stenoses - MRA of brain was unremarkable - MRA of neck was normal - Maintain Systolic Blood Pressure less then 160 - cardiology consult recommended, will most likely need loop recorder to rule out crdiac orgins - recommend eliquis plus asa 81 mg po daily for stroke prevention - follow up with Dr. Chin outpatient case reviewed and discussed with attending <Jose Martin Chin - Last Filed: 08/08/17 18:02> Objective - Vital Signs/Intake and Output Vital Signs (last 24 hours): Temp Pulse Resp BP Pulse Ox 98.2 F 76 20 166/98 H 95 08/08/17 12:00 08/08/17 12:00 08/08/17 12:00 08/08/17 13:32 08/08/17 06:00 Intake and Output: 08/08/17 08/08/17 06:59 18:59 Intake Total 540 720 Output Total 400 1140 Balance 140 -420 - Medications Medications: Current Medications Apixamitzy (Eliquis) 5 mg PO BID [facility] PRN Reason: Protocol Aspirin (Aspirin Chewable) 81 mg PO DAILY [facility] Last Admin: 08/08/17 09:19 Dose: 81 mg Atorvastatin Calcium (Lipitor) 40 mg PO DIN [facility] Last Admin: 08/07/17 17:34 Dose: 40 mg Carvedilol (Coreg) 12.5 mg PO BID [facility] Clonidine HCl (Catapres) 0.1 mg PO BID [facility] Last Admin: 08/08/17 11:32 Dose: Not Given Hydralazine HCl (Apresoline) 10 mg IVP Q6 PRN PRN Reason: Other Last Admin: 08/08/17 01:05 Dose: 10 mg Lisinopril (Zestril) 40 mg PO DAILY [facility] Last Admin: 08/08/17 09:19 Dose: 40 mg Pantoprazole Sodium (Protonix Ec Tab) 40 mg PO 0600 [facility] Last Admin: 08/08/17 06:15 Dose: 40 mg - Labs Labs: 08/08/17 06:40 08/08/17 06:40 PT 11.7 SECONDS (9.4-12.5) 08/06/17 10:00 INR 1.06 (0.93-1.08) 08/06/17 10:00 APTT 29.3 Seconds (25.1-36.5) 08/06/17 10:00 Assessment and Plan - Assessment and Plan (Free Text) Plan: worsening left side weakness on exam likely secondary to more embolic right side infarcts, repeat mri brain. Attending/Attestation - Attestation I have personally seen and examined this patient.: Yes I have fully participated in the care of the patient.: Yes I have reviewed all pertinent clinical information, including history, physical exam and plan: Yes
--- NOTE | 2017-08-08 11:54 | CP.PCM.PN ---
Subjective - Date & Time of Evaluation Date of Evaluation: 08/08/17 Time of Evaluation: 07:00 - Subjective Subjective: PGY1 IM PROGRESS NOTE DR. ARREGUIN/DR. KELLY Patient seen and evaluated at bedside. Patient resting comfortably in bed. No acute events reported overnight. Patient indicates no changes in his weakness or strength with in the past 24 hours. Denies chest pain, shortness of breath, headache, changes in vision, dizziness, abdominal pain, numbness, weakness. Patient BP medication continues to be titrated and will be undergoing further work up for causes of hypertension. Objective - Vital Signs/Intake and Output Vital Signs (last 24 hours): Temp Pulse Resp BP Pulse Ox 98.2 F 76 20 183/99 H 95 08/08/17 06:00 08/08/17 09:19 08/08/17 06:00 08/08/17 11:32 08/08/17 06:00 Intake and Output: 08/08/17 08/08/17 06:59 18:59 Intake Total 540 120 Output Total 400 800 Balance 140 -680 - Medications Medications: Current Medications Aspirin (Aspirin Chewable) 81 mg PO DAILY [facility] Last Admin: 08/08/17 09:19 Dose: 81 mg Atorvastatin Calcium (Lipitor) 40 mg PO DIN [facility] Last Admin: 08/07/17 17:34 Dose: 40 mg Carvedilol (Coreg) 12.5 mg PO BID [facility] Clonidine HCl (Catapres) 0.1 mg PO BID [facility] Last Admin: 08/08/17 11:32 Dose: Not Given Clonidine HCl (Catapres) 0.1 mg PO Q1H [facility] Stop: 08/08/17 13:01 Last Admin: 08/08/17 11:32 Dose: 0.1 mg Hydralazine HCl (Apresoline) 10 mg IVP Q6 PRN PRN Reason: Other Last Admin: 08/08/17 01:05 Dose: 10 mg Lisinopril (Zestril) 40 mg PO DAILY [facility] Last Admin: 08/08/17 09:19 Dose: 40 mg Pantoprazole Sodium (Protonix Ec Tab) 40 mg PO 0600 [facility] Last Admin: 08/08/17 06:15 Dose: 40 mg - Labs Labs: 08/08/17 06:40 08/08/17 06:40 PT 11.7 SECONDS (9.4-12.5) 08/06/17 10:00 INR 1.06 (0.93-1.08) 08/06/17 10:00 APTT 29.3 Seconds (25.1-36.5) 08/06/17 10:00 - Head Exam Head Exam: ATRAUMATIC, NORMAL INSPECTION, NORMOCEPHALIC - Eye Exam Eye Exam: EOMI, PERRL - ENT Exam ENT Exam: Mucous Membranes Moist - Neck Exam Neck Exam: Full ROM - Respiratory Exam Respiratory Exam: Clear to Ausculation Bilateral, NORMAL BREATHING PATTERN - Cardiovascular Exam Cardiovascular Exam: REGULAR RHYTHM, +S1, +S2 - GI/Abdominal Exam GI & Abdominal Exam: Soft, Normal Bowel Sounds. absent: Tenderness - Extremities Exam Extremities Exam: Normal Capillary Refill. absent: Calf Tenderness, Pedal Edema , Tenderness - Back Exam Back Exam: NORMAL INSPECTION - Neurological Exam Neurological Exam: Alert, Awake, Normal Gait Neuro motor strength exam: Left Upper Extremity: 4, Right Upper Extremity: 5, Left Lower Extremity: 4, Right Lower Extremity: 5 - Psychiatric Exam Psychiatric exam: Normal Affect, Normal Mood - Skin Skin Exam: Dry, Intact. absent: Rash Assessment and Plan (1) CVA (cerebral vascular accident) Status: Acute (2) Hypertension Status: Acute - Assessment and Plan (Free Text) Assessment: 66 male with past medial history includes CVA (7 years ago), HTN, kidney stones , presents to the ED with Left sided weakness due to CVA secondary to HTN urgency, currently receiving further work up and medical management. Plan: 1. L sided weakness 2/2 suspected CVA - Brain MRI suggestive of subacute ischemic change. Embolic disease considered - CT Head in the ED was negative for any acute intracranial abnormality - MRA head and neck normal - Neuro consulted for recs - maintain SBP 160 or below - Cardiology consult with [employer] loop recorder to r/o other cardiac causes - Recommend anticoagulation with eliquis and ASA 81 for stroke prevention - Cardio consulted for recs - anticoagulation for stroke prevention - Clonidine 0.1mg BID - Will need anticoagulation once appropriate with neuro - Cont daily Aspirin 81 - Once BP stable several readings of <180/<100, plan to stop plavix, start ASA 81 and Eliquis 5 2. Hypertension - Patient admitted with hypertensive urgency - Etiology: primary vs. secondary - Lisinopril 40mg qd, increase Carvedilol to 12.5mg bid, Clonidine 0.1mg BID Hydralazine 10mg PRN, - Aim for SBP less than 160 at this time - Cont to monitor BP - Secondary hypertension possible cause - Renin, Aldosterone, metanephrines, renal vascular US 3. Hypokalemia - Potassium levels trended, noted, and appreciated - Replete as necessary - continue to monitor 4. Hyperlipidemia - Aspirin 81mg, Plavix 75mg, Atorvastatin 40mg GI/DVT - protonix and SCDs Case and plan was reviewed and discussed in detail with Dr. Arreguin
--- NOTE | 2017-08-08 13:40 | PN ---
DATE: 08/08/2017 CARDIOLOGY FOLLOWUP SUBJECTIVE: The patient is comfortable in bed. His blood pressure remains elevated, varying from 160 to 200 systolic. PHYSICAL EXAMINATION: GENERAL: The patient is comfortable. VITAL SIGNS: BP is 190/100. Heart rate is in the 70s. NECK: Negative JVD. LUNGS: Without rales. HEART: With S1, S2. EXTREMITIES: Without edema. LABORATORIES: BUN and creatinine are unremarkable. Hemoglobin is 15.1. IMPRESSION: 1. New cerebrovascular accident. 2. High probability for embolic cause of cerebrovascular accident. 3. Accelerated hypertension. 4. Abnormal EKG. 5. High probability for coronary artery disease. PLAN: Given these findings, we will start the patient on clonidine 0.1 every hour for three doses and then follow with b.i.d. for better blood pressure control. Once his blood pressure is under better control, I agree with Neuro with starting him on baby aspirin as well as Eliquis to reduce his embolic issues. Pravin Mckeon MD
--- NOTE | 2017-08-08 18:53 | CT ---
PROCEDURE: CT HEAD WITHOUT CONTRAST. HISTORY: worsening left hemiparesis COMPARISON: Unenhanced Head CT 08/06/2017. Unenhanced brain MRI 08/08/2017. TECHNIQUE: Axial computed tomography images were obtained through the head/brain without intravenous contrast. Radiation dose: Total exam DLP = 726.57 mGy-cm. This CT exam was performed using one or more of the following dose reduction techniques: Automated exposure control, adjustment of the mA and/or kV according to patient size, and/or use of iterative reconstruction technique. FINDINGS: HEMORRHAGE: No intracranial hemorrhage. BRAIN: Diffuse expansion of the ventriculosulcal and cisternal spaces is appreciated with advanced white matter lucency compatible with diffuse cerebral atrophy and chronic microangiopathy. Multifocal acute subacute lacunar infarcts are better seen in the prior MRI but are becoming visible at at least the right basal ganglia region. No cortical edema is appreciated this time. Chronic lacune again noted right thalamus with stable nonspecific calcification noted in the left parietal vertex. VENTRICLES: Unremarkable. No hydrocephalus. CALVARIUM: Unremarkable. PARANASAL SINUSES: Unremarkable as visualized. No significant inflammatory changes. MASTOID AIR CELLS: Unremarkable as visualized. No inflammatory changes. OTHER FINDINGS: None. IMPRESSION: Stable unenhanced head CT including advanced age related neuro degenerative changes, right thalamic chronic lacune and left parietal vertex calcification. Acute or subacute lacunar infarcts are becoming visible at the right basal ganglia but is still better seen on the prior MRI 08/08/2017 5:55 p.m. than the current images. Consider follow-up CT or MRI as clinically warranted.
--- NOTE | 2017-08-08 20:44 | MRI ---
EXAM: MR Head Without Intravenous Contrast EXAM DATE/TIME: 08/08/2017 5:27 PM CLINICAL HISTORY: The patient age is 66 years old and is male; Signs and symptoms; Weakness, extremity; Left; Additional info: F/u CVA; Worsening lt upper arm weakness Facility exam id and description: Mri br s brain without contrast TECHNIQUE: Magnetic resonance images of the head/brain without intravenous contrast in multiple planes. COMPARISON: MR - BRAIN WITHOUT CONTRAST 08/06/2017 5:20:50 PM, CT - HEAD W/O CONTRAST 08/06/2017 9:57:15 AM FINDINGS: Brain: Foci of restricted diffusion are identified within the right basal ganglia and right periventricular white matter. This has increased signal intensity compared to the prior study, and is consistent with acute to subacute ischemic change/lacunar infarcts. Additional foci of mildly increased signal intensity on the diffusion sequence are again visualized within the cerebral white matter bilaterally, suggestive of additional subacute ischemic change. T2 shine through artifact can contribute to some of these foci. Due to distribution of foci, embolic disease is considered. There is moderate to extensive additional high FLAIR signal intensity within the cerebral white matter. There is no mass effect or restricted diffusion associated with these foci. In a patient this age, this likely represents chronic small vessel ischemic disease. There is a small nonspecific focus of T1 hypointensity within the genu/anterior body of the corpus callosum. This is suggestive of chronic ischemic change or demyelination. Additional foci of FLAIR hyperintensity are seen within the bilateral basal ganglia and thalami , as well as the gerald. These findings are consistent with chronic lacunar infarcts/chronic small vessel ischemic disease. There is mild prominence of the ventricles and sulci, compatible with atrophy. There are scattered foci of magnetic susceptibility within the bilateral cerebral hemispheres, the bilateral thalami, bilateral basal ganglia, and gerald. These findings are suggestive of hemosiderin, cavernous malformations, or amyloid angiopathy. No acute intracranial hemorrhage is visualized on the head CT from today. A calcification is seen on the prior CT within the left parietal lobe, which can also demonstrate magnetic susceptibility. Ventricles: See above. Bones/joints: No acute abnormality. Sinuses: There is minimal mucosal thickening of the sinuses right maxillary sinus, and scattered ethmoid air cells. Mastoid air cells: No mastoid effusion. Orbits: No acute abnormality, as visualized. IMPRESSION: 1. Foci of restricted diffusion are identified within the right basal ganglia and right periventricular white matter. This has increased signal intensity compared to the prior study, and is consistent with acute to subacute ischemic change/lacunar infarcts. 2. Additional foci of mildly increased signal intensity on the diffusion sequence are again visualized within the cerebral white matter bilaterally, suggestive of additional subacute ischemic change. T2 shine through artifact can contribute to some of these foci. Due to distribution of foci, embolic disease is considered. 3. There is moderate to extensive additional high FLAIR signal intensity within the cerebral white matter. In a patient this age, this likely represents chronic small vessel ischemic disease. 4. There is a small nonspecific focus of T1 hypointensity again visualized within the genu/anterior body of the corpus callosum. This is suggestive of chronic ischemic change or demyelination. Nonemergent post contrast sequences are suggested. 5. Additional chronic ischemic changes are noted above. 6. Mild atrophy.
--- NOTE | 2017-08-09 04:25 | CP.PCM.PN ---
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 MRI was initially ordered by Dr. Joslyn Parrish, who is the patient's neurologist, for evaluation of the patient's worsening left sided weakness. Informed by RN that Dr. Parrish and house doctor, Kevin Alva, were made aware of these results. At approximately 3am on 08/09/17 I was contacted by RN informing me that Dr. Parrish was not actually aware of new findings. Call was placed to Dr. Kim service immediately. Patient seen and examined at beside. Patient speech is slurred. Asymmetric smile noted. Left arm weakness drastically decreased compared to documented baseline. Code stroke was called. During code stroke the house physician informed me that the MRI results from were in fact discussed with Dr. Joslyn Parrish yesterday evening and he is aware of those findings. Per sign out, yesterday at around 1712 there was a call to evaluate the patient as there was a concern that was voiced by physical therapy which prompted the brain MRI by Dr. Joslyn Parrish. Per Dr. Tay, PGY2 five piece expansion maker hand who was here and evaluated the patient after the brain MRI at around 1830, the patient had 3 to 4 -/5 muscle strength on the left side, no facial droop, no slurred speech, and was comfortable. Dr. Tay reviewed the images and believed that there was new lesions in the right internal capsule/basal ganglia and discussed these findings with Dr. Joslyn Parrish who stated no further medical management was necessary at that time as the patient had already been started on aspirin and Eliquis. In light of the patient's worsening/additional neurologic symptoms a new stat CT of head is ordered and pending. Calls were placed to neurology's answering service. Please see A/P for further details. Physical Examination: - Constitutional Appears: Well, No Acute Distress - Head Exam Head Exam: ATRAUMATIC, NORMAL INSPECTION, NORMOCEPHALIC - Eye Exam Eye Exam: Perrl, Normal appearance - ENT Exam ENT Exam: Mucous Membranes Moist - Respiratory Exam Respiratory Exam: Clear to Ausculation Bilateral, NORMAL BREATHING PATTERN. absent: Rhonchi, Wheezes, Respiratory Distress - Cardiovascular Exam Cardiovascular Exam: +s1 +s2 - GI/Abdominal Exam GI & Abdominal Exam: Soft, Normal Bowel Sounds. absent: Distended, Firm, Guarding, Tenderness - Extremities Exam Extremities Exam: Normal Inspection. absent: Pedal Edema, Tenderness - Neurological Exam Neurological Exam: Patient is awake, alert, orientated x 3, responds to verbal stimuli, answers questions appropriately, follows commands, CN II-XII Intact bilaterally, Neuro motor strength exam: Left Upper Extremity: 0/5 , Right Upper Extremity: 5/ 5, Right Lower Extremity: 5/5, Left Lower Extremity: 2/5 - Skin Skin Exam: Dry, Intact, Normal Color, Warm Assessment and Plan: Patient is a 66 year old male with past medial history of CVA (7 years ago), HTN , kidney stones, who was admitted for evaluation of left sided weakness. As per nursing notes the patient's left sided weakness was worsening and Dr. Parrish was made aware of this change. MRI was ordered. MRI results were discussed between house attending, Dr. Alva and Dr. Parrish. Worsening L sided weakness; New onset Facial Droop, New onset Slurring Speech - MRI from 08/08 reviewed and appreciated: 1. Foci of restricted diffusion are identified within the right basal ganglia and right periventricular white matter. This has increased signal intensity compared to the prior study, and is consistent with acute to subacute ischemic change/lacunar infarcts. 2. Additional foci of mildly increased signal intensity on the diffusion sequence are again visualized within the cerebral white matter bilaterally, suggestive of additional subacute ischemic change. T2 shine through artifact can contribute to some of these foci. 3. There is moderate to extensive additional high FLAIR signal intensity within the cerebral white matter. 4. There is a small nonspecific focus of T1 hypointensity again visualized within the genu/anterior body of the corpus callosum. This is suggestive of chronic ischemic change or demyelination. Nonemergent post contrast sequences are suggested. 5. Additional chronic ischemic changes are noted above. 6. Mild atrophy. - Head CT from 08/08 reviewed and appreciated: 1. Stable unenhanced head CT including advanced age related neuro degenerative changes, right thalamic chronic lacune and left parietal vertex calcification. 2. Acute or subacute lacunar infarcts are becoming visible at the right basal ganglia. - Calls placed to neurologist's answering service - spoke to Dr. Prateek Parrish - new physical findings discussed with attending- advised to contact Kranthi Parrish, calls placed to service and direct line- awaiting further recommendations but will continue current medical management until otherwise advised - Calls placed to primary attending's answering service - no answer - Head CT w/out contrast stat - no acute intracranial hemorrhage noted, discussed with [facility] radiologist over the phone in detail - Neuro checks q4 - 1:1 sitter - High risk fall precautions - Findings will be endorsed to day team - Patient seen with, case reviewed with and plan approved by attending physician , Dr. Alva Objective - Vital Signs/Intake and Output Vital Signs (last 24 hours): Temp Pulse Resp BP Pulse Ox 98.6 F 75 20 169/99 H 96 08/09/17 00:01 08/09/17 01:57 08/09/17 00:01 08/09/17 00:01 08/09/17 00:01 Intake and Output: 08/08/17 08/09/17 18:59 06:59 Intake Total 720 Output Total 1140 Balance -420 - Medications Medications: Current Medications Apixaban (Eliquis) 5 mg PO BID [facility] PRN Reason: Protocol Last Admin: 08/08/17 19:05 Dose: 5 mg Aspirin (Aspirin Chewable) 81 mg PO DAILY [facility] Last Admin: 08/08/17 09:19 Dose: 81 mg Atorvastatin Calcium (Lipitor) 40 mg PO DIN [facility] Last Admin: 08/08/17 19:05 Dose: 40 mg Carvedilol (Coreg) 12.5 mg PO BID [facility] Last Admin: 08/08/17 19:06 Dose: 12.5 mg Clonidine HCl (Catapres) 0.1 mg PO BID [facility] Last Admin: 08/08/17 19:10 Dose: 0.1 mg Hydralazine HCl (Apresoline) 10 mg IVP Q6 PRN PRN Reason: Other Last Admin: 08/08/17 19:11 Dose: 10 mg Lisinopril (Zestril) 40 mg PO DAILY [facility] Last Admin: 08/08/17 09:19 Dose: 40 mg Pantoprazole Sodium (Protonix Ec Tab) 40 mg PO 0600 [facility] Last Admin: 08/08/17 06:15 Dose: 40 mg - Labs Labs: 08/08/17 06:40 08/08/17 06:40 PT 11.7 SECONDS (9.4-12.5) 08/06/17 10:00 INR 1.06 (0.93-1.08) 08/06/17 10:00 APTT 29.3 Seconds (25.1-36.5) 08/06/17 10:00 <Kevin Alva - Last Filed: 08/09/17 06:32> Objective - Vital Signs/Intake and Output Vital Signs (last 24 hours): Temp Pulse Resp BP Pulse Ox 98.6 F 75 20 169/99 H 96 08/09/17 00:01 08/09/17 06:00 08/09/17 00:01 08/09/17 00:01 08/09/17 00:01 Intake and Output: 08/08/17 08/09/17 18:59 06:59 Intake Total 720 600 Output Total 1140 250 Balance -420 350 - Medications Medications: Current Medications Apixaban (Eliquis) 5 mg PO BID [facility] PRN Reason: Protocol Last Admin: 08/08/17 19:05 Dose: 5 mg Aspirin (Aspirin Chewable) 81 mg PO DAILY [facility] Last Admin: 08/08/17 09:19 Dose: 81 mg Atorvastatin Calcium (Lipitor) 40 mg PO DIN [facility] Last Admin: 08/08/17 19:05 Dose: 40 mg Carvedilol (Coreg) 12.5 mg PO BID [facility] Last Admin: 08/08/17 19:06 Dose: 12.5 mg Clonidine HCl (Catapres) 0.1 mg PO BID [facility] Last Admin: 08/08/17 19:10 Dose: 0.1 mg Hydralazine HCl (Apresoline) 10 mg IVP Q6 PRN PRN Reason: Other Last Admin: 08/08/17 19:11 Dose: 10 mg Lisinopril (Zestril) 40 mg PO DAILY [facility] Last Admin: 08/08/17 09:19 Dose: 40 mg Pantoprazole Sodium (Protonix Ec Tab) 40 mg PO 0600 [facility] Last Admin: 08/09/17 05:54 Dose: Not Given - Labs Labs: 08/08/17 06:40 08/08/17 06:40 PT 11.7 SECONDS (9.4-12.5) 08/06/17 10:00 INR 1.06 (0.93-1.08) 08/06/17 10:00 APTT 29.3 Seconds (25.1-36.5) 08/06/17 10:00 Attending/Attestation - Attestation I have fully participated in the care of the patient.: Yes I have reviewed all pertinent clinical information, including history, physical exam and plan: Yes Notes (Text): 08/09/17 06:30 called by v rad about the results of MRI ORDERED BY DR RENATA PARRISH ,at 10 pm , called dr renata parrish about the results he states he is already aware of the result and has started the pt on elliquis.
--- NOTE | 2017-08-09 05:30 | CT ---
EXAM: CT Head Without Intravenous Contrast CLINICAL HISTORY: 66 years old, male; Signs and symptoms; Speech disturbance; Additional info: Extended stroke TECHNIQUE: Axial computed tomography images of the head/brain without intravenous contrast. All CT scans at this facility use one or more dose reduction techniques, viz.: automated exposure control; ma/kV adjustment per patient size (including targeted exams where dose is matched to indication; i.e. head); or iterative reconstruction technique. COMPARISON: CT - HEAD W/O CONTRAST 2017-08-08 18:23 FINDINGS: Brain: Cerebral and cerebellar volume loss. Patchy hypodensity is seen in the periventricular and subcortical white matter. Right-sided periventricular and deep white matter small vessel tiny lacunar acute to subacute ischemic change is noted on the MRI from August 08, 2017 could not be from underlying chronic white matter hypodensity related to a remote chronic small vessel ischemic change. There is right thalamic remote lacunar infarct. There is remote lacunar infarct in the gerald. No hemorrhage. Ventricles: Unremarkable. No ventriculomegaly. Bones/joints: Unremarkable. No acute fracture. Soft tissues: Unremarkable. Vasculature: There is left posterior parietal hyperdense nodule with calcification measuring 7 mm which correlates to the hypointensity on the GRE sequence seen on the MRI dated August 08, 2017 and can represent angioma versus vascular etiology. Sinuses: Mild patchy sinus disease. Mastoid air cells: Unremarkable. No mastoid effusion. Orbits: The globe and lens are intact. IMPRESSION: No evidence of an acute intracranial hemorrhage, midline shift or mass effect is identified.
[2017-08-09] MEDS: Pantoprazole 40 mg EC Tab PO SCH (05:54)
[2017-08-09 06:56] LABS: BASO # 0.03 K/mm3 (0.0-2.0); BASO % 0.3 % (0.0-3.0); EOS # 0.1 (0.0-0.7); GRAN # 9.56 (1.4-6.5); GRAN % 80.3 % (50.0-68.0); HEMATOCRIT 42.6 % (42.0-52.0); LYMPH # 1.3 (1.2-3.4); LYMPH % 11.3 % (22.0-35.0); MEAN CELL VOLUME 88.9 fl (80.0-105.0); MEAN CORPUSCULAR HEMOGLOBIN 30.3 pg (25.0-35.0); MEAN PLATELET VOLUME 10.8 fl (7.0-11.0); MONO # 0.8 (0.1-0.6); MONO % 7.1 % (1.0-6.0); RED CELL DISTRIBUTION WIDTH 14.8 % (11.5-14.5); WHITE BLOOD COUNT 11.9 10^3/ul (4.5-11.0)
[2017-08-09 07:31] LABS: ALB/GLOB RATIO 1.3 (1.1-1.8); BILIRUBIN,TOTAL 1.2 mg/dL (0.2-1.3); CALCIUM 9.3 mg/dL (8.4-10.5); POTASSIUM 3.7 mmol/L (3.6-5.0); TOTAL PROTEIN 6.8 g/dL (5.8-8.3)
[2017-08-09 10:43] LABS: INR 1.35 (0.93-1.08)
--- NOTE | 2017-08-09 13:37 | PN ---
DATE: 08/09/2017 CARDIOLOGY FOLLOWUP SUBJECTIVE: The patient has an extension of the stroke, which is left upper extremity is now flaccid. PHYSICAL EXAMINATION: VITAL SIGNS: Blood pressure is 142/94, the heart rate is in the 70s. NECK: Negative JVD. LUNGS: Without rales. HEART: With S1, S2. EXTREMITIES: Without edema. LABORATORY DATA: White count is 11.9. Chemistries; BUN and creatinine are 30 and 1.7. The glucose is 117. Repeat CT scan of the head shows no intracerebral hemorrhage. IMPRESSION: 1. Extension of his cerebrovascular accident. 2. High probability for embolism with a likely source of cardiac. 3. Diabetes mellitus. 4. Hypertension. PLAN: Given these findings, an extensive discussion with Neuro. The likelihood of anticoagulation causing hemorrhagic infarct is low. Risk, benefit analysis would benefit from anticoagulating the patient. Would restart the Eliquis. Once the patient is further away from his acute CVA, would consider JOAQUIN to rule out a patent foramen ovale. Pravin Mckeon MD
--- NOTE | 2017-08-09 15:57 | CP.PCM.PN ---
Subjective - Date & Time of Evaluation Date of Evaluation: 08/09/17 Time of Evaluation: 07:30 - Subjective Subjective: IM PRORGESS NOTE DR. BARGER/DR. KELLY Patient seen and evaluated at bedside. Over past 24 hours patient noted to have progression of CVA symptoms. Patient denies chest pain, shortness of breath, abdominal pain, nausea, vomiting, fever, chills. Objective - Vital Signs/Intake and Output Vital Signs (last 24 hours): Temp Pulse Resp BP Pulse Ox 98.0 F 70 16 159/99 H 94 L 08/09/17 11:59 08/09/17 14:57 08/09/17 11:59 08/09/17 14:57 08/09/17 09:00 Intake and Output: 08/09/17 08/09/17 06:59 18:59 Intake Total 600 500 Output Total 250 500 Balance 350 0 - Medications Medications: Current Medications Apixaban (Eliquis) 5 mg PO BID [facility] PRN Reason: Protocol Last Admin: 08/09/17 12:56 Dose: 5 mg Aspirin (Aspirin Chewable) 81 mg PO DAILY [facility] Last Admin: 08/09/17 10:56 Dose: 81 mg Atorvastatin Calcium (Lipitor) 40 mg PO DIN [facility] Last Admin: 08/08/17 19:05 Dose: 40 mg Carvedilol (Coreg) 12.5 mg PO BID [facility] Last Admin: 08/09/17 10:56 Dose: 12.5 mg Hydralazine HCl (Apresoline) 10 mg IVP Q6 PRN PRN Reason: Other Last Admin: 08/09/17 14:57 Dose: 10 mg Lisinopril (Zestril) 40 mg PO DAILY [facility] Last Admin: 08/09/17 10:55 Dose: 40 mg Pantoprazole Sodium (Protonix Ec Tab) 40 mg PO 0600 [facility] Last Admin: 08/09/17 05:54 Dose: Not Given - Labs Labs: 08/09/17 06:25 08/09/17 06:25 PT 14.9 SECONDS (9.4-12.5) H 08/09/17 10:25 INR 1.35 (0.93-1.08) H 08/09/17 10:25 APTT 29.3 Seconds (25.1-36.5) 12/12/17 10:00 - Constitutional Appears: Non-toxic, No Acute Distress - Head Exam Head Exam: ATRAUMATIC, NORMAL INSPECTION, NORMOCEPHALIC - Eye Exam Eye Exam: EOMI, PERRL - ENT Exam ENT Exam: Mucous Membranes Dry - Respiratory Exam Respiratory Exam: Clear to Ausculation Bilateral, NORMAL BREATHING PATTERN. absent: Rales, Rhonchi, Wheezes - Cardiovascular Exam Cardiovascular Exam: REGULAR RHYTHM, +S1, +S2 - GI/Abdominal Exam GI & Abdominal Exam: Soft, Normal Bowel Sounds. absent: Guarding, Tenderness - Extremities Exam Extremities Exam: absent: Pedal Edema - Neurological Exam Neurological Exam: Alert, Awake, Oriented x3 Neuro motor strength exam: Left Upper Extremity: 2/1, Right Upper Extremity: 5, Left Lower Extremity: 2/1, Right Lower Extremity: 5 - Psychiatric Exam Psychiatric exam: Normal Affect, Normal Mood - Skin Skin Exam: Dry, Intact Assessment and Plan (1) CVA (cerebral vascular accident) Status: Acute (2) Hypertension Status: Acute - Assessment and Plan (Free Text) Assessment: Patient is a 66 year old male with past medial history of CVA (7 years ago), HTN , kidney stones, who was admitted for evaluation of left sided weakness. As per nursing notes the patient's left sided weakness as a result of CVA that has shown worsening of symptoms over the past 12-24 hours. Plan: 1. Worsening L sided weakness; New onset Facial Droop, New onset Slurring Speech - MRI from 08/08 reviewed and appreciated: 1. Foci of restricted diffusion are identified within the right basal ganglia and right periventricular white matter. This has increased signal intensity compared to the prior study, and is consistent with acute to subacute ischemic change/lacunar infarcts. 2. Additional foci of mildly increased signal intensity on the diffusion sequence are again visualized within the cerebral white matter bilaterally, suggestive of additional subacute ischemic change. T2 shine through artifact can contribute to some of these foci. 3. There is moderate to extensive additional high FLAIR signal intensity within the cerebral white matter. 4. There is a small nonspecific focus of T1 hypointensity again visualized within the genu/anterior body of the corpus callosum. This is suggestive of chronic ischemic change or demyelination. Nonemergent post contrast sequences are suggested. 5. Additional chronic ischemic changes are noted above. 6. Mild atrophy. - Head CT from 08/08 reviewed and appreciated: 1. Stable unenhanced head CT including advanced age related neuro degenerative changes, right thalamic chronic lacune and left parietal vertex calcification. 2. Acute or subacute lacunar infarcts are becoming visible at the right basal ganglia. - Head CT w/out contrast 08/09 1. No acute evidence of intracranial hemorrhage - Neurology following, with recs - Continue eliquis 5mg -Cardiology Consulted - Holding off on JOAQUIN at this time, will pursue AC - Discontinue 1:1 sitter - Speech and swallow eval - dysphagia diet - Neuro Checks Q4H - PT/OT - Fall precautions - Repeat Head CT without contrast tomorrow AM 2. Hypertension - Patient admitted with hypertensive urgency - Etiology: primary vs. secondary - Lisinopril 40mg qd, increase Carvedilol to 12.5mg bid, Hydralazine 10mg PRN, - Aim for SBP less than 160 at this time - Cont to monitor BP - Secondary hypertension possible cause - Renin, Aldosterone, metanephrines, renal vascular US 3. Hypokalemia - Potassium levels trended, noted, and appreciated - Replete as necessary - continue to monitor 4. Hyperlipidemia - Aspirin 81mg, Plavix 75mg, Atorvastatin 40mg 5. Elevated Cr - Patient with elevated Cr - Will continue to monitor with BP meds for BP control GI/DVT - protonix and SCDs Case and plan was reviewed and discussed in detail with attending
--- NOTE | 2017-08-09 17:56 | CP.PCM.PN ---
<Yaneth Easton - Last Filed: 08/09/17 18:34> Subjective - Date & Time of Evaluation Date of Evaluation: 08/09/17 Time of Evaluation: 09:00 - Subjective Subjective: PGY-2 Neurology progress note for Dr. Chin's service Patient seen and examined at bedside. Yesterday evening patient was found to have increased weakness on the left side. Repeat MRI was completed showing additional foci. Patient is flaccid on the left side. He denies any pain, including chest pain, headache, dizziness, fever, chills. Objective - Vital Signs/Intake and Output Vital Signs (last 24 hours): Temp Pulse Resp BP Pulse Ox 98 F 18 L 72 H 138/78 99 08/09/17 17:54 08/09/17 17:54 08/09/17 17:54 08/09/17 17:54 08/09/17 17:54 Intake and Output: 08/09/17 08/09/17 06:59 18:59 Intake Total 600 500 Output Total 250 500 Balance 350 0 - Medications Medications: Current Medications Apixaban (Eliquis) 5 mg PO BID [facility] PRN Reason: Protocol Last Admin: 08/09/17 17:27 Dose: 5 mg Aspirin (Aspirin Chewable) 81 mg PO DAILY [facility] Last Admin: 08/09/17 10:56 Dose: 81 mg Atorvastatin Calcium (Lipitor) 40 mg PO DIN [facility] Last Admin: 08/09/17 17:27 Dose: 40 mg Carvedilol (Coreg) 12.5 mg PO BID [facility] Last Admin: 08/09/17 17:27 Dose: 12.5 mg Hydralazine HCl (Apresoline) 10 mg IVP Q6 PRN PRN Reason: Other Last Admin: 08/09/17 14:57 Dose: 10 mg Lisinopril (Zestril) 40 mg PO DAILY [facility] Last Admin: 08/09/17 10:55 Dose: 40 mg Pantoprazole Sodium (Protonix Ec Tab) 40 mg PO 0600 [facility] Last Admin: 08/09/17 05:54 Dose: Not Given - Labs Labs: 08/09/17 06:25 08/09/17 06:25 PT 14.9 SECONDS (9.4-12.5) H 08/09/17 10:25 INR 1.35 (0.93-1.08) H 08/09/17 10:25 APTT 29.3 Seconds (25.1-36.5) 08/06/17 10:00 - Constitutional Appears: No Acute Distress - Head Exam Head Exam: ATRAUMATIC, NORMAL INSPECTION, NORMOCEPHALIC - Eye Exam Eye Exam: EOMI, Normal appearance - ENT Exam ENT Exam: Mucous Membranes Moist - Respiratory Exam Respiratory Exam: Clear to Ausculation Bilateral, NORMAL BREATHING PATTERN. absent: Rhonchi, Wheezes, Respiratory Distress - Cardiovascular Exam Cardiovascular Exam: REGULAR RHYTHM - GI/Abdominal Exam GI & Abdominal Exam: Soft, Normal Bowel Sounds. absent: Tenderness - Neurological Exam Neurological Exam: Alert, Awake, Oriented x3 Neuro motor strength exam: Left Upper Extremity: 0, Right Upper Extremity: 5, Left Lower Extremity: 0, Right Lower Extremity: 5 Assessment and Plan - Assessment and Plan (Free Text) Assessment: 66 male with past medial history includes CVA (7 years ago), HTN, kidney stones , presents to the ED with Left sided weakness due to CVA with poor small vessel disease and poorly controlled HTN. 1. left sided weakness 2. HTN- uncontrolled - repeat CT head did not show evidence of acute intracranial hemorrhage - repeat MRI showed acute to subacute ischemic changes and lacunar infarct - echo showed moderate to severe left ventricular hypertroghy, EF 58% - carotid doppler bilateral 20-39% proximal ICA stenosis - MRA of brain was unremarkable - MRA of neck was normal - Maintain Systolic Blood Pressure less then 160 - cardiology consult recommended, will most likely need JOAQUIN - recommend eliquis plus asa 81 mg po daily for stroke prevention - follow up with Dr. Chin outpatient case reviewed and discussed with attending <Jose Martin Chin - Last Filed: 08/09/17 23:33> Objective - Vital Signs/Intake and Output Vital Signs (last 24 hours): Temp Pulse Resp BP Pulse Ox 98 F 68 72 H 138/78 99 08/09/17 17:54 08/09/17 22:00 08/09/17 17:54 08/09/17 17:54 08/09/17 17:54 Intake and Output: 08/09/17 08/10/17 18:59 06:59 Intake Total 500 Output Total 500 Balance 0 - Medications Medications: Current Medications Apixaban (Eliquis) 5 mg PO BID [facility] PRN Reason: Protocol Last Admin: 08/09/17 17:27 Dose: 5 mg Aspirin (Aspirin Chewable) 81 mg PO DAILY [facility] Last Admin: 08/09/17 10:56 Dose: 81 mg Atorvastatin Calcium (Lipitor) 40 mg PO DIN [facility] Last Admin: 08/09/17 17:27 Dose: 40 mg Carvedilol (Coreg) 12.5 mg PO BID [facility] Last Admin: 08/09/17 17:27 Dose: 12.5 mg Hydralazine HCl (Apresoline) 10 mg IVP Q6 PRN PRN Reason: Other Last Admin: 08/09/17 14:57 Dose: 10 mg Lisinopril (Zestril) 40 mg PO DAILY [facility] Last Admin: 08/09/17 10:55 Dose: 40 mg Pantoprazole Sodium (Protonix Ec Tab) 40 mg PO 0600 [facility] Last Admin: 08/09/17 05:54 Dose: Not Given - Labs Labs: 08/09/17 06:25 08/09/17 06:25 PT 14.9 SECONDS (9.4-12.5) H 08/09/17 10:25 INR 1.35 (0.93-1.08) H 08/09/17 10:25 APTT 29.3 Seconds (25.1-36.5) 08/06/17 10:00 Attending/Attestation - Attestation I have personally seen and examined this patient.: Yes I have fully participated in the care of the patient.: Yes I have reviewed all pertinent clinical information, including history, physical exam and plan: Yes
[2017-08-10] MEDS: Pantoprazole 40 mg EC Tab PO SCH (05:13)
--- NOTE | 2017-08-10 07:25 | CT ---
EXAM: CT Head Without Intravenous Contrast CLINICAL HISTORY: 66 years old, male; Condition or disease; Other: F/u progression of previous CVA; Additional info: Evaluation of progression of previous CVA TECHNIQUE: Axial computed tomography images of the head/brain without intravenous contrast. All CT scans at this facility use one or more dose reduction techniques, viz.: automated exposure control; ma/kV adjustment per patient size (including targeted exams where dose is matched to indication; i.e. head); or iterative reconstruction technique. 154 images are submitted. COMPARISON: CT - HEAD W/O (CODE STROKE) 2017-08-09 05:02 FINDINGS: Brain: Cerebral and cerebellar volume loss. Patchy hypodensity is seen in the periventricular and subcortical white matter. Right-sided periventricular and deep white matter small vessel tiny lacunar acute to subacute ischemic change is noted on the MRI from August 08, 2017 could not be from underlying chronic white matter hypodensity related to a remote chronic small vessel ischemic change. There is right thalamic remote lacunar infarct. There is remote lacunar infarct in the gerald. No hemorrhage. Ventricles: Unremarkable. No ventriculomegaly. Bones/joints: Unremarkable. No acute fracture. Soft tissues: Unremarkable. Vasculature: There is left posterior parietal hyperdense nodule with calcification measuring 7 mm which correlates to the hypointensity on the GRE sequence seen on the MRI dated August 08, 2017 and can represent angioma versus vascular etiology. Sinuses: Mild patchy sinus disease. Mastoid air cells: Unremarkable. No mastoid effusion. IMPRESSION: No evidence of an acute intracranial hemorrhage, midline shift or mass effect is identified.
[2017-08-10 07:38] LABS: BASO # 0.02 K/mm3 (0.0-2.0); BASO % 0.2 % (0.0-3.0); EOS # 0.2 (0.0-0.7); EOS % 1.9 % (1.5-5.0); GRAN # 7.27 (1.4-6.5); GRAN % 71.2 % (50.0-68.0); HEMATOCRIT 44.4 % (42.0-52.0); LYMPH # 1.8 (1.2-3.4); LYMPH % 17.7 % (22.0-35.0); MEAN CELL VOLUME 89.5 fl (80.0-105.0); MEAN CORPUSCULAR HGB CONC 33.6 g/dl (31.0-37.0); MEAN PLATELET VOLUME 10.9 fl (7.0-11.0); MONO # 0.9 (0.1-0.6); WHITE BLOOD COUNT 10.2 10^3/ul (4.5-11.0)
[2017-08-10 08:19] LABS: ALB/GLOB RATIO 1.3 (1.1-1.8); POTASSIUM 3.3 mmol/L (3.6-5.0); TOTAL PROTEIN 6.9 g/dL (5.8-8.3)
[2017-08-10] MEDS ORDERED: Potassium Chloride 40 mEq/30 ml LIQ UD PO STA (08:53)
--- NOTE | 2017-08-10 09:04 | CP.PCM.PN ---
<Wellington Cancino - Last Filed: 08/10/17 12:14> Subjective - Date & Time of Evaluation Date of Evaluation: 08/10/17 Time of Evaluation: 07:10 - Subjective Subjective: Medicine progress note: Pt seen and examined at bedside. No acute events overnight. Pt complaining of L sided upper ext weakness but sttaes that his L lower extremity has improved. No other complaints. 12 Point ROS performed and negative other than stated above. Objective - Vital Signs/Intake and Output Vital Signs (last 24 hours): Temp Pulse Resp BP Pulse Ox 99.4 F 73 20 172/98 H 97 08/10/17 06:00 08/10/17 08:35 08/10/17 06:00 08/10/17 08:35 08/10/17 06:00 Intake and Output: 08/10/17 08/10/17 06:59 18:59 Intake Total 0 Output Total 350 Balance -350 - Medications Medications: Current Medications Amlodipine Besylate (Norvasc) 5 mg PO DAILY SUKHI Apixaban (Eliquis) 5 mg PO BID [facility] PRN Reason: Protocol Last Admin: 08/09/17 17:27 Dose: 5 mg Aspirin (Aspirin Chewable) 81 mg PO DAILY [facility] Last Admin: 08/09/17 10:56 Dose: 81 mg Atorvastatin Calcium (Lipitor) 40 mg PO DIN [facility] Last Admin: 08/09/17 17:27 Dose: 40 mg Carvedilol (Coreg) 12.5 mg PO BID [facility] Last Admin: 08/09/17 17:27 Dose: 12.5 mg Hydralazine HCl (Apresoline) 10 mg IVP Q6 PRN PRN Reason: Other Last Admin: 08/10/17 08:35 Dose: 10 mg Sodium Chloride (Sodium Chloride 0.9%) 1,000 mls @ 60 mls/hr IV .[id number] [facility] Lisinopril (Zestril) 20 mg PO DAILY SUKHI Pantoprazole Sodium (Protonix Ec Tab) 40 mg PO 0600 [facility] Last Admin: 08/10/17 05:13 Dose: 40 mg - Labs Labs: 08/10/17 06:00 08/10/17 06:00 PT 14.9 SECONDS (9.4-12.5) H 08/09/17 10:25 INR 1.35 (0.93-1.08) H 08/09/17 10:25 APTT 29.3 Seconds (25.1-36.5) 08/06/17 10:00 - Constitutional Appears: No Acute Distress - Head Exam Head Exam: ATRAUMATIC, NORMOCEPHALIC - Eye Exam Eye Exam: EOMI, PERRL - ENT Exam ENT Exam: Mucous Membranes Moist - Respiratory Exam Respiratory Exam: Clear to Ausculation Bilateral. absent: Rales, Wheezes - Cardiovascular Exam Cardiovascular Exam: REGULAR RHYTHM, RRR, +S1, +S2 - GI/Abdominal Exam GI & Abdominal Exam: Soft. absent: Tenderness - Extremities Exam Extremities Exam: absent: Calf Tenderness, Pedal Edema - Neurological Exam Neurological Exam: Alert, Awake, Oriented x3 Neuro motor strength exam: Left Upper Extremity: 2/1, Right Upper Extremity: 5, Left Lower Extremity: 4, Right Lower Extremity: 5 - Psychiatric Exam Psychiatric exam: Normal Affect, Normal Mood - Skin Skin Exam: Dry, Intact, Warm Assessment and Plan - Assessment and Plan (Free Text) Assessment: 66 year old male with past medial history of CVA (7 years ago), HTN, kidney stones, who was admitted for evaluation of left sided weakness 2/2 acute CVA. 1. CVA - Head CT from this morning did not show any acute intracranial hemorrhage - Aspirin 81mg, Atorvastatin 40mg, anticoagulation with Eliquis - Neuro consulted for recs - recommend ASA, Eliquis and JOAQUIN - Cardiology consulted for recs - Cont anticoagulation and possible JOAQUIN as outpatient once acute CVA more stable to r/o PFO - Aggressive physical therapy - MRI from 08/08 reviewed and appreciated: 1. Foci of restricted diffusion are identified within the right basal ganglia and right periventricular white matter. This has increased signal intensity compared to the prior study, and is consistent with acute to subacute ischemic change/lacunar infarcts. 2. Additional foci of mildly increased signal intensity on the diffusion sequence are again visualized within the cerebral white matter bilaterally, suggestive of additional subacute ischemic change. T2 shine through artifact can contribute to some of these foci. 3. There is moderate to extensive additional high FLAIR signal intensity within the cerebral white matter. - Head CT from 08/08 reviewed and appreciated: 1. Stable unenhanced head CT including advanced age related neuro degenerative changes, right thalamic chronic lacune and left parietal vertex calcification. 2. Acute or subacute lacunar infarcts are becoming visible at the right basal ganglia. - Head CT w/out contrast 08/09 1. No acute evidence of intracranial hemorrhage - Discontinue 1:1 sitter - Speech and swallow eval - dysphagia diet - Neuro Checks Q4H - Fall precautions 2. ROSALINA - Dec the Lisinopril dose 40mg --> 20mg daily - Started on Norvasc 5mg daily - NS @ 60 started - F/u renal US 3. Hypertension - Dec the Lisinopril dose 40mg --> 20mg daily - Started on Norvasc 5mg daily - Cont Carvedilol 12.5mg bid, Hydralazine 10mg PRN, - Aim for SBP less than 160 at this time - Cont to monitor BP - Secondary hypertension possible cause - Renin, Aldosterone, metanephrines, renal vascular US 4. Hypokalemia - K of 3.3 - Kcl 40meq x 1 today - Replete as necessary - continue to monitor 5. Hyperlipidemia - Aspirin 81mg, Atorvastatin 40mg 6. GI/DVT - protonix and SCDs Case and plan was reviewed and discussed in detail with attending. <Tommy Dill S - Last Filed: 08/10/17 12:21> Objective - Vital Signs/Intake and Output Vital Signs (last 24 hours): Temp Pulse Resp BP Pulse Ox 99.4 F 73 18 172/98 H 98 08/10/17 06:00 08/10/17 08:35 08/10/17 08:00 08/10/17 08:35 08/10/17 08:00 Intake and Output: 08/10/17 08/10/17 06:59 18:59 Intake Total 0 Output Total 350 Balance -350 - Medications Medications: Current Medications Amlodipine Besylate (Norvasc) 5 mg PO DAILY [facility] Last Admin: 08/10/17 10:53 Dose: Not Given Apixaban (Eliquis) 5 mg PO BID [facility] PRN Reason: Protocol Last Admin: 08/10/17 10:53 Dose: Not Given Aspirin (Aspirin Chewable) 81 mg PO DAILY [facility] Last Admin: 08/10/17 10:52 Dose: Not Given Atorvastatin Calcium (Lipitor) 40 mg PO DIN [facility] Last Admin: 08/09/17 17:27 Dose: 40 mg Carvedilol (Coreg) 12.5 mg PO BID [facility] Last Admin: 08/10/17 10:53 Dose: Not Given Hydralazine HCl (Apresoline) 10 mg IVP Q6 PRN PRN Reason: Other Last Admin: 08/10/17 08:35 Dose: 10 mg Sodium Chloride (Sodium Chloride 0.9%) 1,000 mls @ 60 mls/hr IV .[id number] [facility] Last Admin: 08/10/17 10:54 Dose: Not Given Lisinopril (Zestril) 20 mg PO DAILY [facility] Last Admin: 08/10/17 10:54 Dose: Not Given Pantoprazole Sodium (Protonix Ec Tab) 40 mg PO 0600 [facility] Last Admin: 08/10/17 05:13 Dose: 40 mg - Labs Labs: 08/10/17 06:00 08/10/17 06:00 PT 14.9 SECONDS (9.4-12.5) H 08/09/17 10:25 INR 1.35 (0.93-1.08) H 08/09/17 10:25 APTT 29.3 Seconds (25.1-36.5) 08/06/17 10:00 Assessment and Plan - Assessment and Plan (Free Text) Plan: discussed w/ resident at length went over labs meds tests xrays results plans reviewed
--- NOTE | 2017-08-10 10:46 | PCM.RRT ---
<Mehul Cheng - Last Filed: 08/10/17 18:52> LEAD DENTAL ASSISTANT Nurse Assessment - Situation Date: 08/10/17 Time LEAD DENTAL ASSISTANT was called: 10:35 LEAD DENTAL ASSISTANT Responder Arrival Time: 10:36 LEAD DENTAL ASSISTANT Location:: [address] [place] [address] Room Number: [id number] LEAD DENTAL ASSISTANT Reason for Call: Not Responding to Urgent Treatment LEAD DENTAL ASSISTANT Called By: RN - IV IV Inserted during LEAD DENTAL ASSISTANT?: No - Respiratory Oxygen Delivery Method: Room Air Received Nebulizer Treatments:: No Was the Patient Ventilated with Bag/Mask 100% O2?: No Secretions Suctioned?: No Was the Patient Intubated?: No Was the Patient Placed on a Ventilator?: No - Diagnostic Test Ordered EKG: Yes Chest X-Ray: Yes CPR started during LEAD DENTAL ASSISTANT?: No - Finger Stick Blood Glucose Finger Stick Blood Glucose: 122 I.Reason for LEAD DENTAL ASSISTANT - A) Acute Change in Patient: (Select all that apply): Acute change in mental status (LEAD DENTAL ASSISTANT For unresponsiveness ) - Neurological Status (Select all that apply): Confused - Respiratory Oxygen Delivery Method: Room Air - Constitutional Appears: Chronically Ill - Head Head Exam: ATRAUMATIC, NORMAL INSPECTION, NORMOCEPHALIC - Eyes Eye Exam: EOMI, Normal appearance - Respiratory Exam Respiratory Exam: Clear to Ausculation Bilateral, NORMAL BREATHING PATTERN - Cardiovascular Exam Cardiovascular Exam: REGULAR RHYTHM - GI/Abdominal Exam GI & Abdominal Exam: Soft, Normal Bowel Sounds - Neurological Exam Neurological Exam: Alert, Awake, CN II-XII Intact, Normal Gait, Oriented x3 - Extremities Exam Extremities Exam: Full ROM, Normal Capillary Refill, Normal Inspection Plan - Assessment of Findings&Treatment Plan Hx of stroke with more pronounced and more focal deficits. Nurse reported the patient had an acute change in mental status and is currently unresponsive. Pt was seen and examined at bedside. Patient was initially unresponsive to verbal stimuli but was subsequently more arousable and opened his eyes but seemed lethargic. Patient admitted to the hospital for acute CVA with L sided symptoms. Unable to perform ROS due to mental status. PE: Neuro: L sided facial droop (similar to prior). R side upper and lower ext 5/5 motor strength. L side: upper ext 1/5 flaccid paralysis- sensation intact ; Lower ext: 1/5 (mildly decreased from the morning), sensation intact Plan: Code stroke was activated at the time. Patient was taken for a stat CT and ICU evaluation was requested. Patient was taken to the ICU for close monitoring. Neurology contacted and recommended maintain BP of 130-175 and cont current management. <Mariusz Melgar - Last Filed: 08/11/17 10:22> LEAD DENTAL ASSISTANT Nurse Assessment - Vital Signs Vital Sign: Rapid Response Vital Sign Blood Pressure 120/71 Pulse Rate 71 Respiratory Rate 18 Oxygen Saturation 99 - Vital Signs at end of LEAD DENTAL ASSISTANT Vital Signs at end of LEAD DENTAL ASSISTANT: Rapid Response End Vital Sign Blood Pressure 120/71 Pulse Rate 73 Respiratory Rate 18 O2 Sat by Pulse Oximetry 99 Attending/Attestation - Attestation I have personally seen and examined this patient.: Yes I have fully participated in the care of the patient.: Yes I have reviewed all pertinent clinical information, including history, physical exam and plan: Yes Notes (Text): 08/11/17 10:21 Patient was seen and examined with medical billing associate. Agreed with resident assessment and plan. Patient CT head was reviewed, no new infarct or bleeding. Patient mental status is improved.Patient is transfered to ICU for close monitoring. Management plan was discussed in detail with patient Education was provided.
[2017-08-10] MEDS: Sodium Chloride 0.9% 1,000 ML IV SCH ×2 (10:54→12:51)
--- NOTE | 2017-08-10 11:09 | CT ---
PROCEDURE: CT HEAD WITHOUT CONTRAST. 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 MRI 08/08/2017 TECHNIQUE: Axial computed tomography images were obtained through the head/brain without intravenous contrast. Radiation dose: Total exam DLP = 814 mGy-cm. This CT exam was performed using one or more of the following dose reduction techniques: Automated exposure control, adjustment of the mA and/or kV according to patient size, and/or use of iterative reconstruction technique. FINDINGS: HEMORRHAGE: No intracranial hemorrhage. BRAIN: There is no change from the earlier study. Severe chronic microvascular changes are seen throughout the periventricular white matter. Old infarcts are seen in the basal ganglia bilaterally as well as the gerald. Calcified lesion in the left parietal lobe which is of doubtful clinical significance. There are no acute changes. VENTRICLES: Unremarkable. No hydrocephalus. CALVARIUM: Unremarkable. PARANASAL SINUSES: Unremarkable as visualized. No significant inflammatory changes. MASTOID AIR CELLS: Unremarkable as visualized. No inflammatory changes. OTHER FINDINGS: None. IMPRESSION: No acute intracranial findings
[2017-08-10] MEDS ORDERED: Potassium Chloride 40 mEq/30 ml LIQ UD PO ONE (12:15)
--- NOTE | 2017-08-10 14:57 | CARD ---
APPROVED REPORT EKG Measurement Heart [id number] <Conclusion> Normal sinus rhythm Possible Left atrial enlargement T wave abnormality, consider llateral ischemia Abnormal ECG
[2017-08-10 16:16] LABS: POTASSIUM 3.8 mmol/L (3.6-5.0)
--- NOTE | 2017-08-10 18:47 | PN ---
DATE: 08/10/2017 NEUROLOGY FOLLOWUP SUBJECTIVE: The patient seen and examined at the bedside. He has moved to the ICU because found to have increased weakness on the left side and was slightly drowsy. Apparently, he has elevated systolic and diastolic blood pressures where he was given IV dose of hydralazine, which cause him to drop the blood pressure to more than 20 mmHg causing to hypoperfuse making left side a little bit weaker. Otherwise, apparently during my examination he has residual left side weakness from his underlying right MCA territory infarct as well as bilateral infarcts from an embolic source, he is on Eliquis and aspirin. His blood pressure is currently stable. He is communicating well. PAST MEDICAL HISTORY: History of uncontrolled hypertension, dyslipidemia, and chronic kidney stones. SOCIAL HISTORY: No illicit drug use, smoking, or EtOH abuse. FAMILY HISTORY: Noncontributory. MEDICATIONS: Reviewed by nurse per reconciliation sheet. ALLERGIES: NO KNOWN DRUG ALLERGIES: PHYSICAL EXAMINATION: VITAL SIGNS: The patient is afebrile. Pulse rate of 71, blood pressure currently is 120/63, respiratory rate of 16, oxygen saturation 98% on room air. GENERAL: The patient is sitting up in bed, in no acute distress. HEENT: Head is atraumatic and normocephalic. PERRLA. Extraocular muscles intact. NECK: Supple. No JVD. No adenopathy noted. LUNGS: Clear to auscultation. No adventitious sounds. HEART: S1 and S2, normal rate and rhythm. No murmurs, rubs, or gallops. ABDOMEN: Soft, nontender, nondistended. Bowel sounds are present. EXTREMITIES: No clubbing, no cyanosis. Peripheral pulses 2+ bilaterally. NEUROLOGIC: The patient is alert, oriented to person, place, month, and year. Speech is fluent without any errors except for mild dysarthria. Cranial nerves II through XII intact except for left facial droop. Motor exam: Has left side hemiparesis, otherwise right side intact. Toes are upgoing bilaterally. Sensory exam: light touch, pinprick, proprioception, vibration intact. DTRs are 2+ throughout. Coordination: [id number] intact except for on the left side due to left side hemiparesis. Gait is deferred for now. LABORATORY DATA: Sodium is 141, potassium 3.2, chloride 104, carbon dioxide 26, BUN of 43, creatinine of 2, random glucose of 103. ASSESSMENT AND PLAN: This is a 66-year-old male with a past medical history of uncontrolled hypertension, kidney stones, came initially to the hospice with mild left-sided weakness and slurred speech. He was found to have bilateral embolic infarcts and cerebral hemorrhage after which he also developed a right-sided periventricular and right side basal ganglion for causing further left side weakness. His initial swallow and embolic strokes has secondary to an embolic phenomena, therefore stays on Eliquis 2.5 mg p.o. b.i.d. and aspirin 81 mg. He also has poor small vessel disease leading to poorly control hypertension. His carotid Doppler showed bilateral 20% to 39% aortic stenosis. His echocardiogram showed large severe left ventricular hypertrophy with ejection fraction of 58%. At this time, we will recommend: 1. Avoid sudden drops in his blood pressure more than 20 mmHg at a time. 2. Keep his systolic blood pressure between 130 to 170 and diastolic between 75 to 90. 3. Continue with Eliquis plus aspirin 81 for stroke prevention. 4. Advise heart healthy diet and we will need acute rehab and occupational physical therapy. Once again, thank you for this follow up. Jose Martin Chin MD
[2017-08-11 06:20] LABS: BASO # 0.02 K/mm3 (0.0-2.0); BASO % 0.2 % (0.0-3.0); EOS # 0.1 (0.0-0.7); EOS % 1.6 % (1.5-5.0); GRAN # 5.78 (1.4-6.5); GRAN % 67.6 % (50.0-68.0); HEMATOCRIT 41.7 % (42.0-52.0); LYMPH # 1.7 (1.2-3.4); LYMPH % 20.1 % (22.0-35.0); MEAN CELL VOLUME 90.3 fl (80.0-105.0); MEAN CORPUSCULAR HEMOGLOBIN 30.7 pg (25.0-35.0); MEAN CORPUSCULAR HGB CONC 34.1 g/dl (31.0-37.0); MEAN PLATELET VOLUME 11.1 fl (7.0-11.0); MONO # 0.9 (0.1-0.6); MONO % 10.5 % (1.0-6.0); RED CELL DISTRIBUTION WIDTH 14.9 % (11.5-14.5); WHITE BLOOD COUNT 8.6 10^3/ul (4.5-11.0)
[2017-08-11 06:28] LABS: ALB/GLOB RATIO 1.3 (1.1-1.8); BILIRUBIN,TOTAL 0.8 mg/dL (0.2-1.3); CALCIUM 8.8 mg/dL (8.4-10.5); MAGNESIUM 2.4 mg/dL (1.7-2.2); POTASSIUM 3.7 mmol/L (3.6-5.0); TOTAL PROTEIN 6.5 g/dL (5.8-8.3)
[2017-08-11] MEDS: Sodium Chloride 0.9% 1,000 ML IV SCH (06:33)
[2017-08-11] MEDS: Pantoprazole 40 mg EC Tab PO SCH (06:51)
--- NOTE | 2017-08-11 08:59 | PN ---
DATE: 08/11/2017 COMPOSITE ASSEMBLER NOTE SUBJECTIVE: The patient is resting. Continues to be alert and awake, but speaks only [place]. The patient has no new neuro deficits. No respiratory distress. No cough. No congestion. No nausea or vomiting. No fever or chills. No diarrhea. No abdominal pain. PHYSICAL EXAMINATION: VITAL SIGNS: Note that his temperature is 98.6, his pulse is 66, respirations are 19 and blood pressure is 115/61. SKIN: Warm and dry. HEENT: Head is atraumatic and normocephalic. Eyes; reactive to light. Ears, nose, and throat seemed to be within normal limits. NECK: Supple. No JVD. No thyroid enlargement. No lymph nodes. HEART: Has regular rate and rhythm. Normal S1 and S2. LUNGS: Reveal good breath sounds bilaterally. ABDOMEN: Soft. Decreased bowel sounds. GENITALIA AND RECTAL: Deferred. MUSCULOSKELETAL: No joint deformities. EXTREMITIES: Reveal no significant edema. NEUROLOGIC: Has not changed now. LABORATORY DATA: As far as his laboratories; the patient's white count is 8.6, hemoglobin is 14.2, hematocrit 41.7 with platelets of 217,000. PT is 14.9, INR is 1.35. Sodium is 143, potassium 3.7, chloride 109, CO2 of 24 with BUN of 44, creatinine of 1.6 and glucose of 102. IMPRESSION: As far as my impression, this patient has past medical history of uncontrolled hypertension, kidney stones and came with initial left-sided weakness and slurred speech. The patient has bilateral embolic infarcts and cerebral hemorrhage after which he developed a right-sided periventricular and right-sided basal ganglia abnormalities causing left-sided weakness. The patient has strokes from emboli and at this time, he requires Eliquis. He also has history of renal insufficiency as well as cardiomyopathy. PLAN: We will continue to follow Neurology and continue the Eliquis and the aspirin. He continues to have neuro checks and let us see now, he is getting his Lipitor as well as his Norvasc, Protonix and lisinopril. We will follow closely and treat aggressively along with the other consultants and the primary care doctor. Saji Nicole MD
--- NOTE | 2017-08-11 09:25 | CP.PCM.PN ---
<Wellington Cancino - Last Filed: 08/11/17 09:16> Subjective - Date & Time of Evaluation Date of Evaluation: 08/11/17 Time of Evaluation: 07:30 - Subjective Subjective: Medicine progress note: Pt seen and examined at bedside. No acute events overnight. 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 He still has LUE flaccid paralysis. LLE weakness. No other complaints. 12 Point ROS performed and negative other than stated above. Objective - Vital Signs/Intake and Output Vital Signs (last 24 hours): Temp Pulse Resp BP Pulse Ox 98.6 F 66 19 115/61 99 08/11/17 05:39 08/11/17 06:00 08/11/17 05:39 08/11/17 05:39 08/11/17 05:39 Intake and Output: 08/11/17 08/11/17 06:59 18:59 Intake Total 720 Output Total 450 Balance 270 - Medications Medications: Current Medications Amlodipine Besylate (Norvasc) 5 mg PO DAILY [facility] Last Admin: 08/10/17 10:53 Dose: Not Given Apixaban (Eliquis) 5 mg PO BID [facility] PRN Reason: Protocol Last Admin: 08/10/17 17:40 Dose: 5 mg Aspirin (Aspirin Chewable) 81 mg PO DAILY [facility] Last Admin: 08/10/17 12:50 Dose: 81 mg Atorvastatin Calcium (Lipitor) 40 mg PO DIN [facility] Last Admin: 08/10/17 17:39 Dose: 40 mg Carvedilol (Coreg) 12.5 mg PO BID [facility] Last Admin: 08/10/17 17:40 Dose: 12.5 mg Hydralazine HCl (Apresoline) 10 mg IVP Q6 PRN PRN Reason: Other Last Admin: 08/10/17 08:35 Dose: 10 mg Sodium Chloride (Sodium Chloride 0.9%) 1,000 mls @ 60 mls/hr IV .[id number] [facility] Last Admin: 08/11/17 06:33 Dose: 60 mls/hr Lisinopril (Zestril) 20 mg PO DAILY [facility] Last Admin: 08/10/17 10:54 Dose: Not Given Pantoprazole Sodium (Protonix Ec Tab) 40 mg PO 0600 [facility] Last Admin: 08/11/17 06:51 Dose: 40 mg - Labs Labs: 08/11/17 05:30 08/11/17 05:30 PT 14.9 SECONDS (9.4-12.5) H 08/09/17 10:25 INR 1.35 (0.93-1.08) H 08/09/17 10:25 APTT 29.3 Seconds (25.1-36.5) 08/06/17 10:00 - Constitutional Appears: No Acute Distress - Head Exam Head Exam: ATRAUMATIC, NORMOCEPHALIC - Eye Exam Eye Exam: EOMI, PERRL - ENT Exam ENT Exam: Mucous Membranes Moist - Respiratory Exam Respiratory Exam: Clear to Ausculation Bilateral. absent: Rales, Wheezes - Cardiovascular Exam Cardiovascular Exam: RRR, +S1, +S2 - GI/Abdominal Exam GI & Abdominal Exam: Soft. absent: Tenderness - Extremities Exam Extremities Exam: absent: Calf Tenderness, Pedal Edema - Neurological Exam Neurological Exam: Alert, Awake, Oriented x3 Neuro motor strength exam: Left Upper Extremity: 2/1, Right Upper Extremity: 5, Left Lower Extremity: 4, Right Lower Extremity: 5 Additional comments: L facial droop - Psychiatric Exam Psychiatric exam: Normal Affect, Normal Mood - Skin Skin Exam: Dry, Intact, Warm Assessment and Plan - Assessment and Plan (Free Text) Assessment: 66 year old male with past medial history of CVA (7 years ago), HTN, kidney stones, who was admitted for evaluation of left sided weakness 2/2 acute CVA. 1. 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 Foci of restricted diffusion are identified within the right basal ganglia and right periventricular white matter. This has increased signal intensity compared to the prior study, and is consistent with acute to subacute ischemic change/lacunar infarcts. 2. Additional foci of mildly increased signal intensity on the diffusion sequence are again visualized within the cerebral white matter bilaterally, suggestive of additional subacute ischemic change. T2 shine through artifact can contribute to some of these foci. 3. There is moderate to extensive additional high FLAIR signal intensity within the cerebral white matter. - Head CT from 08/08 reviewed and appreciated: 1. Stable unenhanced head CT including advanced age related neuro degenerative changes, right thalamic chronic lacune and left parietal vertex calcification. 2. Acute or subacute lacunar infarcts are becoming visible at the right basal ganglia. - Head CT w/out contrast 08/09 1. No acute evidence of intracranial hemorrhage - Speech and swallow eval - dysphagia diet - Neuro Checks Q4H - Fall precautions 2. ROSALINA - Cr decreased to 1.6 this morning - Cont Lisinopril 20mg daily - Cont Norvasc 5mg daily - NS @ 60 started - F/u renal US 3. Hypertension - Lisinopril 20mg daily - Started on Norvasc 5mg daily - Cont Carvedilol 12.5mg bid, Hydralazine 10mg PRN (maintain BP of 130-175) - Aim for SBP less than 160 at this time - Cont to monitor BP - Secondary hypertension possible cause - Renin, Aldosterone, metanephrines, renal vascular US 4. Hypokalemia - Resolved - Kcl 40meq x 1 today - Replete as necessary - continue to monitor 5. Hyperlipidemia - Aspirin 81mg, Atorvastatin 40mg 6. GI/DVT - protonix and SCDs Dispo: PT and plan for rehab Case and plan was reviewed and discussed in detail with attending. <Tommy Dill - Last Filed: 08/11/17 11:05> Objective - Vital Signs/Intake and Output Vital Signs (last 24 hours): Temp Pulse Resp BP Pulse Ox 98.6 F 71 19 187/104 H 99 08/11/17 05:39 08/11/17 09:21 08/11/17 05:39 08/11/17 09:21 08/11/17 05:39 Intake and Output: 08/11/17 08/11/17 06:59 18:59 Intake Total 720 Output Total 450 Balance 270 - Medications Medications: Current Medications Amlodipine Besylate (Norvasc) 5 mg PO DAILY [facility] Last Admin: 08/11/17 09:20 Dose: 5 mg Apixaban (Eliquis) 5 mg PO BID [facility] PRN Reason: Protocol Last Admin: 08/11/17 09:17 Dose: 5 mg Aspirin (Aspirin Chewable) 81 mg PO DAILY [facility] Last Admin: 08/11/17 09:21 Dose: 81 mg Atorvastatin Calcium (Lipitor) 40 mg PO DIN [facility] Last Admin: 08/10/17 17:39 Dose: 40 mg Carvedilol (Coreg) 12.5 mg PO BID [facility] Last Admin: 08/11/17 09:21 Dose: 12.5 mg Hydralazine HCl (Apresoline) 10 mg IVP Q6 PRN PRN Reason: Other Last Admin: 08/10/17 08:35 Dose: 10 mg Sodium Chloride (Sodium Chloride 0.9%) 1,000 mls @ 60 mls/hr IV .[id number] [facility] Last Admin: 08/11/17 06:33 Dose: 60 mls/hr Lisinopril (Zestril) 20 mg PO DAILY [facility] Last Admin: 08/11/17 09:18 Dose: 20 mg Pantoprazole Sodium (Protonix Ec Tab) 40 mg PO 0600 [facility] Last Admin: 08/11/17 06:51 Dose: 40 mg - Labs Labs: 08/11/17 05:30 08/11/17 05:30 PT 14.9 SECONDS (9.4-12.5) H 08/09/17 10:25 INR 1.35 (0.93-1.08) H 08/09/17 10:25 APTT 29.3 Seconds (25.1-36.5) 08/06/17 10:00 Assessment and Plan - Assessment and Plan (Free Text) Plan: discussed w/ resident at length went over labs xrays tests meds orders consults plans reviewed
--- NOTE | 2017-08-11 14:55 | CP.PCM.PN ---
Subjective - Date & Time of Evaluation Date of Evaluation: 08/11/17 Time of Evaluation: 14:25 - Subjective Subjective: 08/11/17 NEUROLOGY FOLLOWUP SUBJECTIVE: The patient seen and examined at the bedside. He has moved to the ICU because found to have increased weakness on the left side and was slightly drowsy. Apparently, he has elevated systolic and diastolic blood pressures where he was given IV dose of hydralazine, which cause him to drop the blood pressure to more than 20 mmHg causing to hypoperfuse making left side a little bit weaker. He has residual left side weakness from his underlying right MCA territory infarct as well as bilateral infarcts from an embolic source, he is on Eliquis and aspirin. His blood pressure is currently stable. He is communicating well. Will need aggressive PT. PAST MEDICAL HISTORY: History of uncontrolled hypertension, dyslipidemia, and chronic kidney stones. SOCIAL HISTORY: No illicit drug use, smoking, or EtOH abuse. FAMILY HISTORY: Noncontributory. MEDICATIONS: Reviewed by nurse per reconciliation sheet. ALLERGIES: NO KNOWN DRUG ALLERGIES: PHYSICAL EXAMINATION: VITAL SIGNS: Reviewed. GENERAL: The patient is sitting up in bed, in no acute distress. HEENT: Head is atraumatic and normocephalic. PERRLA. Extraocular muscles intact. NECK: Supple. No JVD. No adenopathy noted. LUNGS: Clear to auscultation. No adventitious sounds. HEART: S1 and S2, normal rate and rhythm. No murmurs, rubs, or gallops. ABDOMEN: Soft, nontender, nondistended. Bowel sounds are present. EXTREMITIES: No clubbing, no cyanosis. Peripheral pulses 2+ bilaterally. NEUROLOGIC: The patient is alert, oriented to person, place, month, and year. Speech is fluent without any errors except for mild dysarthria. Cranial nerves II through XII intact except for left facial droop. Motor exam: Has left side hemiparesis, otherwise right side intact. Toes are upgoing bilaterally. Sensory exam: Intact light touch, pinprick, proprioception, vibration intact. DTRs are 2+ throughout. Coordination: [id number]-io-wkex intact except for on the left side due to left side hemiparesis. Gait is deferred for now. LABORATORY DATA: Reviewed ASSESSMENT AND PLAN: This is a 66-year-old male with a past medical history of uncontrolled hypertension, kidney stones, came initially to the hospice with mild left-sided weakness and slurred speech. He was found to have bilateral embolic infarcts and cerebral hemorrhage after which he also developed a right-sided periventricular and right side basal ganglion for causing further left side weakness. His initial swallow and embolic strokes has secondary to an embolic phenomena, therefore stays on Eliquis 2.5 mg p.o. b.i.d. and aspirin 81 mg. He also has poor small vessel disease leading to poorly control hypertension. His carotid Doppler showed bilateral 20% to 39% aortic stenosis. His echocardiogram showed large severe left ventricular hypertrophy with ejection fraction of 58%. At this time, we will recommend: 1. Avoid sudden drops in his blood pressure more than 20 mmHg at a time. 2. Keep his systolic blood pressure between 130 to 170 and diastolic between 75 to 90. 3. Continue with Eliquis plus aspirin 81 for stroke prevention. 4. Advise heart healthy diet and we will need acute rehab and occupational physical therapy. Once again, thank you for this follow up. Jose Martin Chin MD Objective - Vital Signs/Intake and Output Vital Signs (last 24 hours): Temp Pulse Resp BP Pulse Ox 98.6 F 71 19 187/104 H 99 08/11/17 05:39 08/11/17 09:21 08/11/17 05:39 08/11/17 09:21 08/11/17 05:39 Intake and Output: 08/11/17 08/11/17 06:59 18:59 Intake Total 720 Output Total 450 Balance 270 - Medications Medications: Current Medications Amlodipine Besylate (Norvasc) 5 mg PO DAILY [facility] Last Admin: 08/11/17 09:20 Dose: 5 mg Apixaban (Eliquis) 5 mg PO BID [facility] PRN Reason: Protocol Last Admin: 08/11/17 09:17 Dose: 5 mg Aspirin (Aspirin Chewable) 81 mg PO DAILY [facility] Last Admin: 08/11/17 09:21 Dose: 81 mg Atorvastatin Calcium (Lipitor) 40 mg PO DIN [facility] Last Admin: 08/10/17 17:39 Dose: 40 mg Carvedilol (Coreg) 12.5 mg PO BID [facility] Last Admin: 12/17/17 09:21 Dose: 12.5 mg Hydralazine HCl (Apresoline) 10 mg IVP Q6 PRN PRN Reason: Other Last Admin: 08/10/17 08:35 Dose: 10 mg Sodium Chloride (Sodium Chloride 0.9%) 1,000 mls @ 60 mls/hr IV .[id number] [facility] Last Admin: 08/11/17 06:33 Dose: 60 mls/hr Lisinopril (Zestril) 20 mg PO DAILY [facility] Last Admin: 08/11/17 09:18 Dose: 20 mg Pantoprazole Sodium (Protonix Ec Tab) 40 mg PO 0600 [facility] Last Admin: 08/11/17 06:51 Dose: 40 mg - Labs Labs: 08/11/17 05:30 08/11/17 05:30 PT 14.9 SECONDS (9.4-12.5) H 08/09/17 10:25 INR 1.35 (0.93-1.08) H 08/09/17 10:25 APTT 29.3 Seconds (25.1-36.5) 08/06/17 10:00
[2017-08-12 05:37] LABS: BASO # 0.01 K/mm3 (0.0-2.0); BASO % 0.1 % (0.0-3.0); EOS # 0.3 (0.0-0.7); EOS % 2.7 % (1.5-5.0); GRAN # 6.97 (1.4-6.5); GRAN % 75.3 % (50.0-68.0); HEMATOCRIT 40.8 % (42.0-52.0); LYMPH # 1.4 (1.2-3.4); LYMPH % 14.7 % (22.0-35.0); MEAN CELL VOLUME 90.1 fl (80.0-105.0); MEAN CORPUSCULAR HEMOGLOBIN 30.2 pg (25.0-35.0); MEAN CORPUSCULAR HGB CONC 33.6 g/dl (31.0-37.0); MEAN PLATELET VOLUME 11.2 fl (7.0-11.0); MONO # 0.7 (0.1-0.6); MONO % 7.2 % (1.0-6.0); RED CELL DISTRIBUTION WIDTH 14.8 % (11.5-14.5); WHITE BLOOD COUNT 9.3 10^3/ul (4.5-11.0)
[2017-08-12 06:20] LABS: ALB/GLOB RATIO 1.3 (1.1-1.8); ALKALINE PHOSPHATASE 85 U/L (38-126); ALT/SGPT 37 U/L (7-56); AST/SGOT 31 U/L (17-59); BILIRUBIN,TOTAL 0.7 mg/dL (0.2-1.3); BLOOD UREA NITROGEN 32 mg/dL (7-21); CALCIUM 8.8 mg/dL (8.4-10.5); CARBON DIOXIDE 25 mmol/L (21-33); CHLORIDE 112 mmol/L (98-107); GFR AFRICAN-AMERICAN > 60; GLUCOSE,RANDOM 113 mg/dL (70-110); POTASSIUM 3.6 mmol/L (3.6-5.0); SODIUM 145 mmol/L (132-148); TOTAL PROTEIN 6.4 g/dL (5.8-8.3)
[2017-08-12 06:48] VITALS: O2SAT 94
[2017-08-12] MEDS: Pantoprazole 40 mg EC Tab PO SCH (06:59)
--- NOTE | 2017-08-12 09:09 | CON ---
DATE: 08/10/2017 REQUESTING PHYSICIAN: Liang Arreguin MD. CHIEF COMPLAINT: Patient initially presented to the hospital with symptoms of acute CVA, left-sided upper and lower extremity weakness. HISTORY OF PRESENT ILLNESS: Mr. Cervantes is a 56-year-old male who speaks little to no Turkmen. 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 Patient presented to the hospital with left-sided weakness, unsure if how long prior to getting to the hospital he had CVA symptoms. The patient was admitted to the floor and has had multiple CTs as well as MRI to evaluate his CVA. The patient is being followed by Neuro, Dr. Chin and Cardiology, Dr. Mckeon. It was felt that one of the MRIs revealed that this may be an embolic pattern. The patient's MRA is negative as well as carotid Doppler. It was decided that he would have a JOAQUIN when he is stabilized. The patient on the floor today developed altered mental status as well as seemed to have progression of his weakness on the left upper and lower extremity and was given a stat CT scan of his head, which reveals no change from prior CT scans, which showed chronic microvascular white matter changes and an old basal ganglia infarct. The patient, at this time, has been transferred to Intensive Care Unit. He is awake and alert, responding appropriately to verbal stimuli, continues to have weakness in the left upper and lower extremity, which at this time does not seem to have worsened from prior examination. No fever or chills, no nausea or vomiting, no complaints of abdominal pain, does have some chest discomfort and no diarrhea. PAST MEDICAL HISTORY: Significant for hypertension, cardiomyopathy, kidney stones, and renal insufficiency. ALLERGIES: THE PATIENT HAS NO KNOWN ALLERGIES. CURRENT MEDICATIONS: Can be evaluated as per the nurse's intake form. SOCIAL HISTORY: He has no history of smoking, EtOH abuse, or drug abuse. FAMILY HISTORY: Noncontributory. PHYSICAL EXAMINATION: VITAL SIGNS: His temperature is 99.4, his pulse is 71, respirations are 18, and BP is 120/71. SKIN: Warm and dry. HEENT: Head atraumatic, normocephalic. Eyes are reactive to light. Ear, nose and throat seem to be within normal limits. NECK: Supple. No JVD, no thyroid enlargement, no lymph nodes. HEART: Has regular rate and rhythm. Normal S1, S2. LUNGS: Reveal good breath sounds bilaterally. ABDOMEN: Soft, nontender, normal bowel sounds. No organomegaly noted. GENITALIA AND RECTAL: Deferred. MUSCULOSKELETAL: No joint deformities. EXTREMITIES: Reveal no significant edema. NEUROLOGIC: The patient has weakness in the left upper and lower extremities. LABORATORY DATA: His white count is 10.2, hemoglobin is 14.9, hematocrit 44.4 with platelets of 227,000. Patient's sodium is 141, potassium 3.3, chloride 104, CO2 of 26 with a BUN of 43, creatinine of 2.0, and a glucose of 103. Patient's CT of the head that was done today shows no intracranial hemorrhage and no acute intracranial findings, no changes from earlier study. Patient's MRI done on 08/08/2017 does show that there is [id number] additional high flare signal intensity within cerebral white matter. In a patient this age, this likely represents chronic small vessel ischemic disease. Also there is increased signal intensity compared to prior study and this is consistent with [id number] ischemic changes, lacunar infarcts. This is located in the right basal ganglia and right periventricular white matter. IMPRESSION AND PLAN: The patient had an acute cerebrovascular accident, has uncontrolled hypertension, has cardiomyopathy as well as renal insufficiency and a history of kidney stones. The patient is felt via the MRI that this may be an embolic pattern and CT scan of the head reveals chronic microvascular changes with old basal ganglia infarct. Cardiology has been following and JOAQUIN has been recommended to rule out embolic etiology. The patient has been started on Eliquis and hypertensive medications. He has been transferred to the Intensive Care Unit for closer monitoring and will be followed closely by Neurology, Dr. Chin. At this time, he continues to be on aspirin as well as Lipitor and Norvasc. The patient is on Protonix as well as lisinopril and we will continue with IV fluids. We will monitor closely and continue to treat aggressively along with the other consultants and primary care doctor. Saji Nicole MD
--- NOTE | 2017-08-12 11:19 | US ---
PROCEDURE: Bilateral renal artery duplex ultrasound. CLINICAL HISTORY: Renal artery stenosis. Uncontrolled hypertension. Evaluate for renovascular hypertension. PHYSICIAN(S): Pravin Weeks M.D. TECHNIQUE: Duplex sonography with color-flow Doppler was used to evaluate the visualized segments of the main renal arteries. The patient was evaluated in a fasting state. Imaging in a supine and decubitus position was performed. Limited evaluation of the arcuate waveforms and resistive indices were performed. FINDINGS: Visualization of the main renal arteries is somewhat limited. The kidneys are normal in size, shape, and location. The right kidney measures 11.4cm in length and the left kidney measures 10.6cm in length. No solid renal masses, abnormal calcifications, or hydronephrosis is seen. The renal parenchyma is somewhat echogenic. The main right renal artery is visualized in segments.. The peak systolic velocity in the right main renal artery is 102 cm/sec. This is consistent with a 0 to 49% stenosis in the main right renal artery. The arcuate waveforms are normal. The resistive index is normal. The main left renal artery is also visualized in segments.. The peak systolic velocity in the main left renal artery is 97cm/sec. This corresponds to a 0 to 49% stenosis in the main left renal artery. The arcuate waveforms and resistive indices are normal. IMPRESSION: 1. The main renal arteries are visualized in segments. If clinical suspicion for renal artery stenosis is high, additional imaging with CTA, MRA, or conventional arteriogram can be considered. 2. No sonographically significant stenosis is identified. 3. The kidneys are normal and symmetric in size. There are no solid renal masses, abnormal calcifications or hydronephrosis noted. 4. Echogenic renal parenchyma
--- NOTE | 2017-08-12 12:23 | PN ---
DATE: 08/12/2017 CARDIOLOGY FOLLOWUP SUBJECTIVE: The patient's neurologic defect is unchanged. PHYSICAL EXAMINATION: VITAL SIGNS: Blood pressure 188/94 and heart rate is in the 70s. NECK: Negative JVD. LUNGS: Without rales. HEART: S1 and S2. EXTREMITIES: Without edema. LABORATORY DATA: BUN and creatinine 32 and 1.3. The hemoglobin is 13.7. IMPRESSION: 1. New cerebrovascular accident. 2. Hypertension. 3. Left upper extremity weakness. 4. Hypercholesterolemia. PLAN: Given these findings. I have discussed with the patient and family about his need to rule out coronary disease. He should have a stress test in approximately 4-6 weeks. Pravin Mckeon MD
[2017-08-12 13:00] VITALS: BP 168/82; PULSE 72; RESP 17; TEMP 98.1
[2017-08-12 14:58] LABS: METANEPHRINES <25 pg/mL (<=57); TOTAL METANEPHRINES 148 pg/mL (<=205)
--- NOTE | 2017-08-12 16:01 | CP.PCM.DIS ---
Provider - Provider Date of Admission: 08/06/17 11:38 Attending physician: Liang Arreguin MD Time Spent in preparation of Discharge (in minutes): 40 Hospital Course - Lab Results Lab Results: Most Recent Lab Values WBC 9.3 10^3/ul (4.5-11.0) 08/12/17 05:00 RBC 4.53 10^6/uL (3.5-6.1) 08/12/17 05:00 Hgb 13.7 g/dL (14.0-18.0) L 08/12/17 05:00 Hct 40.8 % (42.0-52.0) L 08/12/17 05:00 MCV 90.1 fl (80.0-105.0) 08/12/17 05:00 MCH 30.2 pg (25.0-35.0) 08/12/17 05:00 MCHC 33.6 g/dl (31.0-37.0) 08/12/17 05:00 RDW 14.8 % (11.5-14.5) H 08/12/17 05:00 Plt Count 221 10^3/uL (120.0-450.0) 08/12/17 05:00 MPV 11.2 fl (7.0-11.0) H 08/12/17 05:00 Gran % 75.3 % (50.0-68.0) H 08/12/17 05:00 Lymph % (Auto) 14.7 % (22.0-35.0) L 08/12/17 05:00 Door % (Auto) 7.2 % (1.0-6.0) H 08/12/17 05:00 Eos % (Auto) 2.7 % (1.5-5.0) 08/12/17 05:00 Baso % (Auto) 0.1 % (0.0-3.0) 08/12/17 05:00 Gran # 6.97 (1.4-6.5) H 08/12/17 05:00 Lymph # 1.4 (1.2-3.4) 08/12/17 05:00 Door # 0.7 (0.1-0.6) H 08/12/17 05:00 Eos # 0.3 (0.0-0.7) 08/12/17 05:00 Baso # 0.01 K/mm3 (0.0-2.0) 08/12/17 05:00 PT 14.9 SECONDS (9.4-12.5) H 08/09/17 10:25 INR 1.35 (0.93-1.08) H 08/09/17 10:25 APTT 29.3 Seconds (25.1-36.5) 08/06/17 10:00 Sodium 145 mmol/L (132-148) 08/12/17 05:00 Potassium 3.6 mmol/L (3.6-5.0) 08/12/17 05:00 Chloride 112 mmol/L (98-107) H 08/12/17 05:00 Carbon Dioxide 25 mmol/L (21-33) 08/12/17 05:00 Anion Gap 12 (10-20) 08/12/17 05:00 BUN 32 mg/dL (7-21) H 08/12/17 05:00 Creatinine 1.3 mg/dl (0.8-1.5) 08/12/17 05:00 Est GFR ( Amer) > 60 08/12/17 05:00 Est GFR (Non-Af Amer) 56 08/12/17 05:00 POC Glucose (mg/dL) 104 mg/dL (65-110) 08/08/17 18:48 Random Glucose 113 mg/dL (70-110) H 08/12/17 05:00 Hemoglobin A1c 5.4 % (4.2-6.5) 08/06/17 10:00 Calcium 8.8 mg/dL (8.4-10.5) 08/12/17 05:00 Phosphorus 2.7 mg/dL (2.5-4.5) 08/06/17 10:00 Magnesium 2.4 mg/dL (1.7-2.2) H 08/11/17 05:30 Total Bilirubin 0.7 mg/dL (0.2-1.3) 08/12/17 05:00 AST 31 U/L (17-59) 08/12/17 05:00 ALT 37 U/L (7-56) 08/12/17 05:00 Alkaline Phosphatase 85 U/L (38-126) 08/12/17 05:00 Lactate Dehydrogenase 566 U/L (333-699) 08/06/17 10:00 Total Creatine Kinase 101 U/L (35-230) 08/06/17 10:00 Troponin I 0.02 ng/mL 08/07/17 00:30 Total Protein 6.4 g/dL (5.8-8.3) 08/12/17 05:00 Albumin 3.6 g/dL (3.0-4.8) 08/12/17 05:00 Globulin 2.8 gm/dL 08/12/17 05:00 Albumin/Globulin Ratio 1.3 (1.1-1.8) 08/12/17 05:00 Triglycerides 174 mg/dL (35-160) H 08/06/17 10:00 Cholesterol 201 mg/dL (130-200) H 08/06/17 10:00 LDL Cholesterol Direct 148 mg/dL (0-129) H 08/06/17 10:00 HDL Cholesterol 34 mg/dL (29-60) 08/06/17 10:00 TSH 3rd Generation 1.50 mIU/mL (0.46-4.68) 08/06/17 10:00 PTH Intact Whole Molec 86 pg/mL (14-64) H 08/08/17 13:00 Plasma Metanephrine <25 pg/mL (<=57) 08/08/17 13:00 Plasma Normetanephrine 148 pg/mL (<=148) 08/08/17 13:00 Plas Total Metaneph 148 pg/mL (<=205) 08/08/17 13:00 Urine Color Yellow (YELLOW) 08/06/17 09:50 Urine Appearance Sl cloudy (CLEAR) 08/06/17 09:50 Urine pH 7.5 (4.7-8.0) 08/06/17 09:50 Ur Specific [place] 1.025 (1.005-1.035) 08/06/17 09:50 Urine Protein 100 mg/dL (<30 mg/dL) H 08/06/17 09:50 Urine Glucose (UA) Negative mg/dL (NEGATIVE) 08/06/17 09:50 Urine Ketones Negative mg/dL (NEGATIVE) 08/06/17 09:50 Urine Blood Small (NEGATIVE) H 08/06/17 09:50 Urine Nitrate Negative (NEGATIVE) 08/06/17 09:50 Urine Bilirubin Negative (NEGATIVE) 08/06/17 09:50 Urine Urobilinogen 0.2 E.U./dL (<1 E.U./dL) 08/06/17 09:50 Ur Leukocyte Esterase Negative [place]/uL (NEGATIVE) 08/06/17 09:50 Urine RBC 2 - 5 /hpf (0-2) 08/06/17 09:50 Urine WBC Negative /hpf (0-6) 08/06/17 09:50 - Hospital Course Hospital Course: Mr. Cervantes is a 66 yo M with past medial history of CVA (7 years ago), HTN ( medication non compliance), and kidney stones who presented with L sided weakness. NIHSS done in ED was 2. EKG showed normal sinus rhythm rate approximately [address] and T-wave changes. CT Head showed a chronic infarct in the right thalamus, severe chronic microvascular changes are seen in the deep white matter, calcification in the left parietal lobe; no acute intracranial findings. Patient did not receive TPA as he was not a candidate. CXR was unremarkable. Patient was transferred to telemetry for monitoring. ASA was given. Neuro and Cardio were consulted, and their recs were followed and appreciated. Carotid US showed bilateral 20-39% proximal ICA stenoses. Echo showed EF 58%, and there is moderate to severe concentric left ventricular hypertrophy. MRI Brain showed findings consistent with subacute ischemic change (embolic disease is considered ), chronic small vessel ischemic disease, mild atrophy. MRA of Head and Neck was done and was unremarkable. The patient's BP was elevated, which was allowed due to permissive hypertension to maintain perfusion, however to a renal US was done to r/o causes of HTN and the exam was unremarkable. SECURITY TECHNICIAN was called was on the patient during the stay for change in mental state likely due to BP, and CT was ordered to r/o hemorrhagic conversion or possible hemorrhagic stroke consider the elevated BP. The patient was maintained on Lipitor, Eliquis and ASA for CVA, and Coreg, Lisinopril and Norvasc for HTN. Patient is being transferred to [facility] rehab center. He offers no complaints and is improving on his physical exam with moving his LLE, however his LUE is still very limited. Patient was optimized for transfer. - Date & Time of H&P Date of H&P: 08/06/17 Time of H&P: 12:40 Discharge Exam - Head Exam Head Exam: ATRAUMATIC, NORMOCEPHALIC - Eye Exam Eye Exam: EOMI, Normal appearance, PERRL Pupil Exam: NORMAL ACCOMODATION - ENT Exam ENT Exam: Mucous Membranes Moist, Normal Exam - Neck Exam Neck exam: Full Rom - Respiratory Exam Respiratory Exam: Clear to PA & Lateral, NORMAL BREATHING PATTERN. absent: Rales, Rhonchi, Wheezes - Cardiovascular Exam Cardiovascular Exam: RRR, +S1, +S2. absent: JVD - GI/Abdominal Exam GI & Abdominal Exam: Normal Bowel Sounds, Soft. absent: Distended, Tenderness - Extremities Exam Extremities exam: normal inspection, pedal pulses present - Back Exam Back exam: NORMAL INSPECTION - Neurological Exam Neurological exam: Alert, Motor Sensory Deficit (LUE 1/5, LLE 4/5; R side 5/5 ) , Oriented x3 - Psychiatric Exam Psychiatric exam: Normal Affect, Normal Mood - Skin Skin Exam: Normal Color, Warm Discharge Plan - Follow Up Plan Condition: SERIOUS Disposition: OTHER INSTITUTION Instructions: Ischemic Stroke (DC), Chronic Hypertension (DC), Stroke (DC) Additional Instructions: 1. follow up stress test scheduled for 09/12/2017 at [facility] (formerly [facility]).
[2017-08-13 12:13] LABS: ALDO/PRA RATIO 9.5 Ratio (0.9-28.9)
== END 2017-08-12 15:45 | DRG 64 ==
LOC: ED 09:10 → ERH 11:38 → 3RSO 13:13 → ICU 08-10 11:06 → 3RSO 08-12 06:37
PROVIDERS: ADMIT Internal Medicine; ATTEND Internal Medicine
DX: I63.49 Cerebral infarction due to embolism of other cerebral artery (principal); I61.9 Nontraumatic intracerebral hemorrhage, unspecified; N17.9 Acute kidney failure, unspecified; I42.9 Cardiomyopathy, unspecified; I69.354 Hemiplegia and hemiparesis following cerebral infarction affecting left non-dominant side; R29.810 Facial weakness; R47.81 Slurred speech; E78.00 Pure hypercholesterolemia, unspecified; I15.9 Secondary hypertension, unspecified; I10 Essential (primary) hypertension; E87.6 Hypokalemia; R29.702 NIHSS score 2; I65.23 Occlusion and stenosis of bilateral carotid arteries; I16.0 Hypertensive urgency; I35.0 Nonrheumatic aortic (valve) stenosis; E11.9 Type 2 diabetes mellitus without complications; Z91.14 Patient's other noncompliance with medication regimen; Z87.442 Personal history of urinary calculi; Z82.3 Family history of stroke

== ENCOUNTER 2017-09-17 12:36 | Emergency (ER) | payer OTHER ==
[2017-09-17 12:36] VITALS: BMI 32.3
[2017-09-17 13:02] VITALS: RESP 18
--- NOTE | 2017-09-17 13:12 | ED PDOC ---
Arrival/HPI - General Chief Complaint: GI Problem Time Seen by Provider: 09/17/17 12:59 Historian: Patient, Family - History of Present Illness Narrative History of Present Illness (Text): 09/17/17 13:10 A 66 year old male, whose past medical history includes CVA with residual left sided weakness, presents to the emergency department complaining of 3 episodes of non-bloody diarrhea since yesterday. Patient notes generalized weakness and a subjective fever last night. Patient denies any nausea, vomiting, abdominal pain, chest pain, shortness of breath, cough or any other complaints. Daughter notes sick contact at home. PMD: Dr. Lau Time/Duration: Other (yesterday) Symptom Course: Unchanged Context: Home Past Medical History - Provider Review Nursing Documentation Reviewed: Yes - Infectious Disease Hx of Infectious Diseases: None - Cardiac Hx Cardiac Disorders: Yes Hx Hypertension: Yes - Pulmonary Hx Respiratory Disorders: No - Neurological HX Cerebrovascular Accident: Yes (TIA) - HEENT Hx Epistaxis: Yes - Renal Hx Kidney Stones: Yes (lithotripsy) - Endocrine/Metabolic Hx Endocrine Disorders: No - Hematological/Oncological Hx Blood Disorders: No - Integumentary Hx Dermatological Disorder: No - Musculoskeletal/Rheumatological Hx Arthritis: Yes - Gastrointestinal Hx Gastrointestinal Disorders: No - Genitourinary/Gynecological Hx Genitourinary Disorders: No - Psychiatric Hx Anxiety: Yes Hx Substance Use: No - Surgical History Other/Comment: lithotripsy Family/Social History - Physician Review Nursing Documentation Reviewed: Yes Family/Social History: No Known Family HX Smoking Status: Never Smoked Hx Alcohol Use: No Hx Substance Use: No Allergies/Home Meds Allergies/Adverse Reactions: Allergies No Known Allergies Allergy (Verified 09/17/17 12:55) Home Medications: Home Meds Medication Instructions Recorded Confirmed amLODIPine [Norvasc] 5 mg PO BID 09/17/17 09/17/17 hydrALAZINE [hydralazine 10 mg PO Q8 09/17/17 09/17/17 Hydrochloride] Review of Systems - Review of Systems Constitutional: Fatigue, Fevers, Other (Generalized weakness) Eyes: absent: Vision Changes ENT: absent: Hearing Changes Respiratory: absent: SOB, Cough Cardiovascular: absent: Chest Pain, ECHAVARRIA Gastrointestinal: Diarrhea. absent: Abdominal Pain, Nausea, Vomiting, Appetite Changes Genitourinary Male: absent: Dysuria, Frequency, Hematuria, Urinary Output Changes Musculoskeletal: absent: Arthralgias, Back Pain Skin: absent: Rash Neurological: absent: Headache, Dizziness, Focal Weakness Endocrine: absent: Polyuria Physical Exam - Physical Exam Narrative Physical Exam (Text): Head: Atraumatic. Normocephalic. Eyes: PERRL. EOMI. Conjunctivae are not pale. ENT: Mucous membranes are moist and intact. Oropharynx is clear and symmetric. Neck: Supple. Full ROM. No JVD. No lymphadenopathy. Cardiovascular: Regular rate. Regular rhythm. No murmurs, rubs, or gallops. Distal pulses are 2+ and symmetric. Pulmonary/Chest: No evidence of respiratory distress. Clear to auscultation bilaterally. No wheezing, rales or rhonchi. Abdominal: Soft and non-distended. There is no tenderness. No rebound, guarding, or rigidity. No organomegaly. Good bowel sounds. Rectal: no gross bleeding Back: No CVA tenderness. Extremities: No edema. No cyanosis. No clubbing. Full range of motion in all extremities. No calf tenderness. Skin: Skin is warm and dry. No petechiae. No purpura. Neurological: Alert, awake, and oriented. Left sided weakness at baseline. No meningeal signs. Psychiatric: Good eye contact. Normal interaction, affect, and behavior. Vital Signs Reviewed: Yes Vital Signs Temp Pulse Resp BP Pulse Ox 09/17/17 17:58 99.0 F 65 18 129/60 95 09/17/17 16:02 100.6 F H 09/17/17 15:41 100.6 F H 78 18 144/81 95 09/17/17 12:50 98.9 F 70 18 136/75 97 Temperature: Afebrile Blood Pressure: Normal Pulse: Regular Respiratory Rate: Normal Appearance: Positive for: Well-Appearing, Non-Toxic, Comfortable Pain Distress: None Mental Status: Positive for: Alert and Oriented X 3 Medical Decision Making ED Course and Treatment: 09/17/17 13:10 Impression: A 66 year old male with 3 episodes of non-bloody diarrhea. Patient notes generalized weakness and fever. Differential Diagnosis included but are not limited to: Gastroenteritis vs. Influenza Plan: -- Labs -- Influenza A B stat -- Pepcid and IV fluids -- Reassess and disposition Progress Notes: Patient febrile, but with serial exams in ED, no abdominal pain. He is hungry. No nausea or vomiting. Abdomen soft and nontender with serial exams. Denies cough or congestion. Denies any respiratory symptoms. Denies dysuria or frequency. ? uti on ua, will send urine cx, d/c with abx. Risks/side effects and medication interactions reviewed with patient and family. Daughter present and at bedside fo exam and instructions. On re-exam no abdominal pain and no respiratory symptoms. Stressed need for re-exam by PMD in 1-2 days. As he is not hypotensive or tachycardic or toxic appearing, will d/c with follow -up. No recent travel. No recent abx usage. 09/17/17 23:42 - Lab Interpretations Lab Results: 09/17/17 14:30 09/17/17 14:30 Lab Results 09/17/17 16:15: Urine Color Light yellow, Urine Appearance Clear, Urine pH 7.0, Ur Specific [place] 1.010, Urine Protein Trace H, Urine Glucose (UA) Negative, Urine Ketones Negative, Urine Blood Trace-intact H, Urine Nitrate Negative, Urine Bilirubin Negative, Urine Urobilinogen 0.2, Ur Leukocyte Esterase Negative , Urine RBC 2 - 5, Urine WBC 0 - 2, Ur Epithelial Cells 0 - 2, Urine Bacteria Few 09/17/17 14:30: Sodium 143, Potassium 3.8, Chloride 103, Carbon Dioxide 28, Anion Gap 16, BUN 22 H, Creatinine 1.5, Est GFR ( Amer) 57, Est GFR (Non- Af Amer) 47, Random Glucose 92, Calcium 9.6, Total Bilirubin 0.7, AST 20, ALT 41 , Alkaline Phosphatase 83, Total Protein 7.1, Albumin 4.0, Globulin 3.0, Albumin /Globulin Ratio 1.3 09/17/17 14:30: Influenza Typ A,B (EIA) Negative for flu a/b 09/17/17 14:30: WBC 7.8, RBC 4.20, Hgb 12.7 L, Hct 38.0 L, MCV 90.5, MCH 30.2, MCHC 33.4, RDW 14.0, Plt Count 228, MPV 11.4 H, Gran % 81.1 H, Lymph % (Auto) 12.8 L, [place] % (Auto) 5.9, Eos % (Auto) 0.1 L, Baso % (Auto) 0.1, Gran # 6.32, Lymph # 1.0 L, [place] # 0.5, Eos # 0.0, Baso # 0.01 I have reviewed the lab results: Yes - Medication Orders Current Medication Orders: Discontinued Medications Acetaminophen (Tylenol 325mg Tab) 650 mg PO ONCE STA Stop: 09/17/17 15:43 Last Admin: 09/17/17 16:02 Dose: 650 mg MAR Pain/Vitals Document 09/17/17 16:02 OCS (Rec: 09/17/17 16:02 OCS [id number]) Vitals Temperature (97.6 F-99.6 F) 100.6 F Temperature Source Oral Re-Assess: MAR Pain/Vitals Document 09/17/17 17:58 OCS (Rec: 09/17/17 18:04 OCS [id number]) Vitals Temperature (97.6 F-99.6 F) 99.0 F Temperature Source Oral Famotidine (Pepcid) 20 mg IVP STAT STA Stop: 09/17/17 13:25 Last Admin: 09/17/17 14:30 Dose: 20 mg IVP Administration Document 09/17/17 14:30 OCS (Rec: 09/17/17 14:37 OCS [id number]) Charges for Administration # of IVP Administrations 1 Sodium Chloride (Sodium Chloride 0.9%) 1,000 mls @ 100 mls/hr IV .Q10H [id number] Last Admin: 09/17/17 14:30 Dose: 100 mls/hr eMAR Start Stop Document 09/17/17 14:30 OCS (Rec: 09/17/17 14:37 [place] [id number]) Intravenous Solution Start Date 09/17/17 Start Time 14:37 - Scribe Statement Amanda Arce Provider Scribe Attestation: All medical record entries made by the Scribe were at my direction and personally dictated by me. I have reviewed the chart and agree that the record accurately reflects my personal performance of the history, physical exam, medical decision making, and the department course for this patient. I have also personally directed, reviewed, and agree with the discharge instructions and disposition. Disposition/Present on Arrival - Present on Arrival Any Indicators Present on Arrival: No History of DVT/PE: No History of Uncontrolled Diabetes: No Urinary Catheter: No History of Decub. Ulcer: No History Surgical Site Infection Following: None - Disposition Have Diagnosis and Disposition been Completed?: Yes Diagnosis: Fever, Diarrhea, UTI (urinary tract infection) Disposition: HOME/ ROUTINE Disposition Time: 18:00 Patient Plan: Discharge Condition: GOOD Discharge Instructions (ExitCare): Fever in Adults (ED) Additional Instructions: For any headaches, any cough, any chest pain or shortness of breath, any abdominal pain, any nausea or vomiting or diarrhea, any bloody urine or stool, get rechecked. Risks and side effects of medication have been reviewed. Take antibiotic as directed. Get rechecked by your physician in 1-2 days. Prescriptions: levoFLOXacin [Levaquin] 500 mg PO DAILY 5 Days #5 tab Referrals: Faye Fernández MD [Primary Care Provider] - Follow up with primary Forms: [employer] ([place]ian)
[2017-09-17] MEDS ORDERED: Sodium Chloride 0.9% 1,000 ML IV SCH (13:30)
[2017-09-17 14:55] LABS: BASO # 0.01 K/mm3 (0.0-2.0); BASO % 0.1 % (0.0-3.0); EOS % 0.1 % (1.5-5.0); GRAN # 6.32 (1.4-6.5); GRAN % 81.1 % (50.0-68.0); HEMOGLOBIN 12.7 g/dL (14.0-18.0); LYMPH % 12.8 % (22.0-35.0); MEAN CELL VOLUME 90.5 fl (80.0-105.0); MEAN CORPUSCULAR HEMOGLOBIN 30.2 pg (25.0-35.0); MEAN CORPUSCULAR HGB CONC 33.4 g/dl (31.0-37.0); MEAN PLATELET VOLUME 11.4 fl (7.0-11.0); MONO # 0.5 (0.1-0.6); MONO % 5.9 % (1.0-6.0); RBC 4.2 10^6/uL (3.5-6.1); WHITE BLOOD COUNT 7.8 10^3/ul (4.5-11.0)
[2017-09-17 14:59] LABS: ALB/GLOB RATIO 1.3 (1.1-1.8); CALCIUM 9.6 mg/dL (8.4-10.5)
[2017-09-17 15:45] VITALS: O2SAT 95
[2017-09-17 16:22] LABS: URINE BILIRUBIN NEGATIVE (NEGATIVE); URINE BLOOD TRACE-INTACT (NEGATIVE); URINE GLUCOSE (UA) NEGATIVE (NEGATIVE); URINE LEUKOCYTE ESTERASE NEGATIVE Leu/uL (NEGATIVE); URINE NITRATE NEGATIVE (NEGATIVE); URINE PROTEIN TRACE mg/dL (<30 mg/dL); URINE UROBILINOGEN 0.2 E.U./dL (<1 E.U./dL)
[2017-09-17 16:34] LABS: URINE APPEARANCE CLEAR (CLEAR); URINE COLOR LIGHT YELLOW (YELLOW)
[2017-09-17 16:41] LABS: URINE BACTERIA FEW (NEG); URINE EPITHELIAL CELLS 0 - 2 /hpf (0-5); URINE WBC 0 - 2 /hpf (0-6)
[2017-09-17 17:59] VITALS: BP 129/60; PULSE 65; TEMP 99
== END 2017-09-17 17:58 | disposition home or self-care (01) ==
LOC: ED 12:36
DX: N39.0 Urinary tract infection, site not specified (principal); R50.9 Fever, unspecified; R19.7 Diarrhea, unspecified
CPT/HCPCS: 80053; 81001; 85025; 87804; 96374; 99284; J7040